=== PATIENT | female | born 1995 | race Two or more races ===

== ENCOUNTER 2024-05-19 15:46 | Inpatient (IN) | payer BC, MEDICAID, SELFPAY ==
[2024-05-19] VITALS (9 sets, daily range): BP systolic 108–135; BP diastolic 64–81; PULSE 67–99; RESP 16–18; TEMP 36.6–36.8; O2SAT 95–98; BMI 30.1
--- NOTE | 2024-05-19 16:00 | EDNOTE_ITS ---
ED General RME/HPI General Stated complaint: BACK PAIN Time Seen by Provider: 05/19/24 15:55 Arrival date/time: 05/19/24 15:46 RME / HPI RME / HPI narrative: 29-year-old female patient with history of back pain in the past, came in for ev aluation regarding sudden onset of back pain, lumbar location, after coughing a lot. Patient denies any shortness of breath denies any fever denies any bladder incontinence. Denies any bowel incontinence denies any saddle anesthesia. Pain is worse with sudden positional change. Patient took Tylenol with codeine with no relief. Came in with ambulance Related Data Previous Rx's ?Medication ?Instructions ?Recorded ibuprofen 800 mg tablet 800 mg PO TID PRN pain #30 tabs 11/01/22 meloxicam 7.5 mg tablet 7.5 mg PO BID #45 tabs 05/17/23 ketorolac 10 mg tablet 10 mg PO TID PRN pain 5 days #20 05/19/24 tabs lidocaine 5 % topical patch 1 patch topical Q24H #15 ea 05/19/24 methocarbamol 750 mg tablet 750 mg PO TID #21 tabs 05/19/24 Allergies Allergy/AdvReac Type Severity Reaction Status Date / Time No Known Allergies Allergy Verified 05/17/23 10:19 Review of Systems Review of Systems Narrative Review of Systems: VITAL SIGNS: Reviewed. GENERAL APPEARANCE: Alert and interactive, follows commands, no acute distress, HEAD AND FACE: Non-traumatic. ENT: PERRL, pink conjunctivitis, eyelid no trauma, Mucous membrane moist. NECK: Supple, nontender, no nuchal rigidity. CHEST: No tenderness, no crepitus, no paradoxical movement, no retractions. LUNGS: Clear, well ventilated, symmetric, no rales, no wheezing, no ronchi, no stridor, good breath sounds bilaterally. HEART: Regular rate, regular rhythm, no murmur, no gallops. ABDOMEN: Soft, positive bowel sounds, nondistended, no guarding, nontender, no rebound, no masses, RECTAL: Deferred. GENITAL: Deferred. NEUROLOGICAL: Gross motor function intact sensory function intact, Appropriate for age. MUSCULOSKELETAL: low back nontender, full range of motion. EXTREMITIES: Nontender, full range of motion. SKIN: Color pink, dry, no rash, no lacerations, no abrasions, no contusions. LYMPHATICS: Deferred. ED Exam Narrative Physical exam: VITAL SIGNS: Reviewed. GENERAL APPEARANCE: Alert and interactive, follows commands, no acute distress, HEAD AND FACE: Non-traumatic. ENT: PERRL, pink conjunctivitis, eyelid no trauma, Mucous membrane moist. NECK: Supple, nontender, no nuchal rigidity. CHEST: No tenderness, no crepitus, no paradoxical movement, no retractions. LUNGS: Clear, well ventilated, symmetric, no rales, no wheezing, no ronchi, no stridor, good breath sounds bilaterally. HEART: Regular rate, regular rhythm, no murmur, no gallops. ABDOMEN: Soft, positive bowel sounds, nondistended, no guarding, nontender, no rebound, no masses, RECTAL: Deferred. GENITAL: Deferred. NEUROLOGICAL: Gross motor function intact sensory function intact, Appropriate for age. MUSCULOSKELETAL: low back tenderness, limited range of motion. EXTREMITIES: Nontender, full range of motion. SKIN: Color pink, dry, no rash, no lacerations, no abrasions, no contusions. LYMPHATICS: Deferred. Course Quality Measures none Orders Category Date Time Status HCG Qualitative,Urine Stat Lab 05/19/24 16:50 Completed UA, C/S IF [Urinalysis, C/S if Indicated] Stat Lab 05/19/24 16:50 Completed Urine Culture Stat Lab 05/19/24 16:50 Received Ketorolac Inj [Toradol Inj] Med 05/19/24 16:11 Discontinued 60 mg IM X1 ONE Lidocaine 5% Patch Med 05/19/24 16:11 Discontinued 1 patch TOP X1 ONE Morphine Inj Med 05/19/24 17:54 Discontinued 4 mg IM X1 ONE methocarbamoL [Robaxin] Med 05/19/24 16:11 Discontinued 500 mg PO X1 ONE Vital Signs Vital signs: Vital Signs Temperature 98.3 F 05/19/24 15:48 Pulse Rate 83 05/19/24 15:48 Respiratory Rate 18 05/19/24 15:48 Blood Pressure 122/76 05/19/24 15:48 Pulse Oximetry (%) 97 05/19/24 15:48 Oxygen Delivery Method Room Air 05/19/24 15:48 [facility] Patient data External records reviewed:: None Clinical information provided by:: patient Social determinants that could affect healthcare access:: none Patient has the following chronic illnesses:: None How is presenting disease/condition affected by chronic disease/condition?: no chronic disease Evaluation data The following diagnostics were reviewed and interpreted by me:: lab results Lab and/or radiology exams considered but not ordered:: None Interpretation Summary: Urinalysis no UTI, Medications Medications considered but not ordered:: None Medication administrations:: Medication Administration History Discontinued Medications Ketorolac Tromethamine (Ketorolac Inj 60 Mg/2 Ml Vial) 60 mg IM X1 ONE Stop: 05/19/24 16:12 Last Admin: 05/19/24 16:48 Dose: 60 mg Documented By: BRIGIDA Lidocaine (Lidocaine 5% 1 Patch) 1 patch TOP X1 ONE Stop: 05/19/24 16:12 Last Admin: 05/19/24 16:55 Dose: 1 patch Documented By: BRIGIDA Methocarbamol (Methocarbamol 500 Mg Tablet) 500 mg PO X1 ONE Stop: 05/19/24 16:12 Last Admin: 05/19/24 17:39 Dose: 500 mg Documented By: BRIGIDA Morphine Sulfate (Morphine Sulf Inj 10 Mg/Ml Vial) 4 mg IM X1 ONE Stop: 05/19/24 17:55 Last Admin: 05/19/24 18:06 Dose: 4 mg Documented By: BRIGIDA Toradol lidocaine patch Robaxin and morphine Consultations Consultation(s) initiated? (list below): No Diagnosis Differential Diagnosis ED Complaint MDM: Acute low back pain, lumbar disc disease, lumbar strain Most likely diagnosis given after review of the tests above:: Acute low back pain Admission Indicated Admission indicated?: not indicated Explain why admission is indicated or not indicated:: Stable Admission Request Was there a request for admission?: No Disposition Plan Disposition Plan: Discharge Discharge Attestation Discharge Attestation: The patient and all family members were given an opportunity to ask questions and understood the discharge instructions. Discharge instructions specifically effects, indications for sooner follow up or return to the emergency department, and the expected course of current diagnosis. Patient condition: Stable Medical Decision Making MDM Narrative MDM Narrative: 29-year-old female patient with history of back pain in the past, came in for evaluation regarding sudden onset of back pain, lumbar location, after coughing a lot. Patient denies any shortness of breath denies any fever denies any bladder incontinence. Denies any bowel incontinence denies any saddle anesthesia. Pain is worse with sudden positional change. Patient took Tylenol with codeine with no relief. Came in with ambulance Urinalysis came back negative patient tested negative for . Patient received Toradol IM, Robaxin, with significant improvement of pain however patient still having pain I added morphine and patient is now ready to go home according to her. I advised the patient to follow-up with PCP and asked for referral to physical therapy if no improvement with physical therapy patient needs outpatient MRI of the lumbar spine. Patient agrees with the plan. No need for imaging or emergency imaging of the lumbar spine at this time patient is showing any cauda equina syndrome. Differential Diagnosis Differential Diagnosis: Acute low back pain, lumbar disc disease, lumbar strain Lab Data Labs: Lab Results 05/19/24 Range/Units 16:50 Ur Collection Type Clean Catch Urine Color Lt-Yellow (Lt Yel-Yel) Urine Clarity Clear (Clear/Hazy) Urine pH 7.0 (5.0-7.0) Ur Specific [place] 1.011 (1.001-1.035) Urine Protein Negative (Neg - Trace) Urine Glucose (UA) Negative (Negative) Urine Ketones Negative (Negative) Urine Blood Negative (Negative) Urine Nitrite Negative (Negative) Urine Bilirubin Negative (Negative) Urine Urobilinogen (Auto) Negative (0.0-1.0) mg/dL Ur Leukocyte Esterase Negative (Negative) Urine RBC 3 (0-3) /hpf Urine WBC 1 (0-5) /hpf Ur Squamous Epith Cells 1 (0-5) /hpf Urine Bacteria 1+ A (None) Ur Culture Indicated? Yes Urine HCG, Qual Negative Discharge Plan Plan Patient Disposition: HOME (Self Care) Disposition Comment: stable Prescriptions/Referrals Prescriptions/Med Rec: New methocarbamol 750 mg tablet 750 mg PO TID Qty: 21 0RF ketorolac 10 mg tablet 10 mg PO TID PRN (Reason: pain) 5 Days Qty: 20 0RF lidocaine 5 % adhesive patch,medicated 1 patch topical Q24H Qty: 15 0RF Rx Instructions: leave on most painful area for up to 12 hrs No Action meloxicam 7.5 mg tablet 7.5 mg PO BID Qty: 45 3RF ibuprofen 800 mg tablet 800 mg PO TID PRN (Reason: pain) Qty: 30 0RF Referrals: Lauren Yo PA-C ([facility]) [Primary Care Provider] - In 1 week Problem List Clinical Impression: Acute low back pain Patient/Caregiver Discharge Instructions Discharge Activity: activity as tolerated Education Materials: ED Back Care Tips Additional Instructions: Thank you for the opportunity for serving you today. You are stable for discharged . You are advised to: Follow-up with your PCP in 1 to 2 days Return to ED for worsening of symptoms Increase oral fluids Take medication as prescribed Print Language: Tamazight Stand Alone Forms: Mariana Award Info., Patient Portal Info Letter
[2024-05-19] MEDS: KETOROLAC INJ 60 MG/2 ML VIAL IM (16:48)
[2024-05-19 16:55] LABS: Collection Type, Urine Clean Catch
[2024-05-19] MEDS: LIDOCAINE 5% 1 PATCH TOP (16:55)
[2024-05-19 17:04] LABS: Bacteria,Urine 1+; Bilirubin,Urine Negative (Negative); Blood,Urine Negative (Negative); Clarity,Urine Clear (Clear/Hazy); Color,Urine Lt-Yellow (Lt Yel-Yel); Glucose, Urine Negative (Negative); Ketones,Urine Negative (Negative); Leukocyte Esterase,Urine Negative (Negative); Nitrite,Urine Negative (Negative); Protein,Urine Negative (Neg - Trace); RBC,Urine 3 /hpf (0-3); Specific Gravity,Urine 1.011 (1.001-1.035); Squamous Epithelial Cell,Urine 1 /hpf (0-5); Urobilinogen,Urine Negative mg/dL (0.0-1.0); WBC,Urine 1 /hpf (0-5)
[2024-05-19 17:05] LABS: Culture Indicated,Urine Yes; HCG Qualitative,Urine Negative
[2024-05-19] MEDS: methocarbamoL 500 MG TABLET PO (17:39)
[2024-05-19] MEDS: MORPHINE SULF INJ 10 MG/ML VIAL 4 MG IM (18:06)
[2024-05-19] MEDS: HYDROmorphone INJ 2 MG/ML VIAL 1 MG IM (18:56)
--- NOTE | 2024-05-19 19:21 | PC.NURSE ---
1700 PATIENT STATES THAT SHE HURT HER RT KNEE A FEW MONTHS AGO AND HAS BEEN HAVING INTERMITTENT BACK PAIN SINCE THEN. STATES THE PAIN HAS NEVER BEEN BAD TODAY NOR RADIATING DOWN HER LEGS. PAIN IS TOLERABLE WHEN SHE IS PRONE BUT INCREASES WHE SHE TRIES TO SIT UP. 1820 PATIENT DISCHARGED AND TRIED TO GET UP. UNABLE DUE TO SEVERE PAIN. ASKED REST AND GIVE PAIN MEDICATION MORE TIME TO WORK, THEN TRY AGAIN. REASSURED NO [place]TT TO DISCHARGE. 1840 PATIENT TRIED AGAIN AND STILL NOT ABLE TO GET UP. PROVIDER INFORMED. HE WENT TO BEDSIDE TO EVALUATE AND ORDERED MORE PAIN MEDICATION
--- NOTE | 2024-05-19 19:25 | XR_ITS ---
Examination: CT abdomen with intravenous contrast CT pelvis with intravenous contrast 2-D coronal reconstructions 2-D sagittal reconstructions Date and time of exam:May 12, 2024 1950 hrs. Indications: Abdominal pain lower back pain radiating down both legs, beginning 2 days ago. CTDI: vol (mGy) 8.980 DLP: (mGycm) 505 10 Technique: Multiple axial sections of the abdomen and pelvis have been obtained. 64 slice high-resolution scanner used. 3 mm axial sections have been obtained, post intravenous injection 60 cc Isovue-370 2-D sagittal, coronal reconstructions obtained. Low dose protocols were performed. One or more of the following dose reduction techniques were used; automated exposure control, adjustment of the mA and/or KV according to patient size, use of iterative reconstruction technique. Findings: Significant opacity in the right middle lobe and right base No focal liver or splenic lesions No gallstones No pancreatic or adrenal mass No renal or ureteral calculi, no hydronephrosis Aorta normal size Normal appendix Anteverted uterus No bladder mass L4-L5 extruded 6 mm central disc impinging upon the thecal sac Impression: Recommend PA lateral chest follow-up to confirm right base right middle lobe pneumonia No renal or ureteral calculi, no hydronephrosis Normal appendix L4-L5 large extruded central disc, consider MRI lumbar spine without contrast follow-up
--- NOTE | 2024-05-19 19:25 | XR_ITS ---
Examination: CT lumbar spine, with intravenous contrast. 2-D sagittal reconstructions. 2-D coronal reconstructions. 3-D reconstructions. Date and time of exam:May 19, 2024 1958 hrs. Indications: Low back pain radiating down both legs beginning 2 days ago CTDI: vol (mGy):22.4 DLP: (mGycm):594 Technique: Multiple 1.25 mm axial sections of the lumbar spine with intravenous contrast, 60 cc Isovue-370 have been obtained. 2-D sagittal and coronal reconstructions have been obtained. 3-D reconstructions have been obtained. Low dose protocols were performed. One or more of the following dose reduction techniques were used; automated exposure control, adjustment of the mA and/or KV according to patient size, use of iterative reconstruction technique. Findings: Adequate alignment lumbar vertebral bodies No lumbar fracture Moderate disease L5-S1 L4-L5 large, 9 mm extruded central disc severely impinging upon the thecal sac More cephalad levels unremarkable Impression: L5-S1 large, 9 mm, extruded central disc producing severe spinal stenosis Recommend MRI lumbar spine without contrast follow-up
[2024-05-19 20:01] LABS: Basophils % (Auto) 0 % (0-2.5); Eosinophils # (Auto) 0.3 Thou/mm3 (0.0-0.5); Eosinophils % (Auto) 4 % (0-10); Hematocrit 33.6 % (36.0-46.0); Hemoglobin 11.9 g/dL (12.0-16.0); Immature Granulocytes % (Auto) 0 % (0-0); Immature Granulocytes Auto 0.02 Thou/mm3 (0.00-0.00); Lymphocytes # (Auto) 2.6 Thou/mm3 (1.0-4.8); Lymphocytes % (Auto) 31 % (10-50); Mean Corpuscular HGB Conc 35.4 g/dl (31.0-37.0); Mean Corpuscular Hemoglobin 29.4 pg (25.0-35.0); Mean Corpuscular Volume 83 fL (80-100); Monocytes # (Auto) 0.7 Thou/mm3 (0.0-0.8); Monocytes % (Auto) 8 % (0-12); Neutrophils # (Auto) 4.7 Thou/mm3 (1.8-7.7); Neutrophils % (Auto) 57 % (37-80); Nucleated Red Blood Cell % 0 /100 WBC (0); Platelet Count 318 Thou/mm3 (140-440); RDW Standard Deviation 38.1 fL (36.4-46.3); Red Blood Count 4.05 Miln/mm3 (4.00-5.20); White Blood Count 8.2 Thou/mm3 (3.6-11.0)
[2024-05-19] MEDS: DIAZEPAM 5 MG TABLET 10 MG PO (20:09)
[2024-05-19 20:20] LABS: Alanine Aminotransferase 51 U/L (10-49); Albumin, Serum 4.7 gm/dL (3.5-5.0); Albumin/Globulin Ratio 1.5 (1.2-2.2); Alkaline Phosphatase 86 U/L (46-116); Anion Gap 10 (7-16); Aspartate Amino Transferase 29 U/L (0-34); BUN/Creatinine Ratio 15 Ratio (12-20); Bilirubin,Total 0.3 mg/dL (0.3-1.2); Blood Urea Nitrogen 9 mg/dL (9-23); Calcium 9.4 mg/dL (8.3-10.6); Calcium (Corrected) 9.4 mg/dL (8.5-10.1); Carbon Dioxide 23.2 mMol/L (20.0-31.0); Chloride 107 mMol/L (98-107); Creatinine (Component) 0.6 mg/dL (0.6-1.3); Estimated Creatinine Clearance 134.8 mL/min (>60); Globulin 3.2 gm/dL (2.3-3.5); Glucose 96 mg/dL (74-106); Lipase 37 U/L (12-53); Osmolality,Calculated 278 (275-295); Potassium 3.6 mMol/L (3.4-5.1); Sodium 140 mMol/L (136-145); Total Protein 7.9 gm/dL (5.7-8.2); eGFR > 60 See Note
--- NOTE | 2024-05-19 22:30 | ESHP_ITS ---
Documentation for date of: 05/19/24 [facility] History of Present Illness Chief complaint: Severe Backache History of present illness: A 29-year-old female with no significant past medical history presented to the hospital with chief complaints of severe intractable low back pain since 1 day. Patient was apparently normal 6 months ago during which she fell on her back and had back pain for few days following which it subsided. 1 week ago, patient was diagnosed with flu and was taking Tamiflu. Patient is having severe cough since then. On the day of admission, patient had severe cough episode while sitting in the car following which she noted sudden onset lower back pain due to which she was not even able to mobilize and her friend by her side took her to the home helped her to walk into the home as patient was not able to walk due to severe pain and also not able to bear weight on her legs due to severe tingling and numbness radiating from the low back to the foot. After going to the home patient laid down on the floor for few hours and as patient was still not able to get up from the bed, patient was brought to the hospital. Endorsed that she is able to feel clothes on her body. Denies bowel, bladder incontinence, saddle anesthesia. ED Course: -Initial vitals were stable -Labs significant for Hb 11.9, ALT 51, urine analysis showed 1+ bacteria -Lumbar spine of CT showed 9 mm central disc bulge causing spinal stenosis at L5/S1 -In the ED, patient was given ketorolac, hydromorphone -Patient was admitted for intractable back ache secondary to spinal stenosis Past medical history: Not significant Past surgical history: Breast implants Social history: Denies smoking, alcohol, other illicit drug abuse. Review of Systems Review of Systems Systems Reviewed: All systems reviewed, normal except as documented Exam Vital Signs Temp Pulse Resp BP Pulse Ox O2 Del Method 97.9 F 75 18 108/67 95 Room Air 05/19/24 20:14 05/19/24 21:00 05/19/24 20:14 05/19/24 21:00 05/19/24 21:00 05/19/24 20:14 Narrative Exam General: Awake. HEENT: Normocephalic, atraumatic, mucous membranes moist. Heart: Regular rate and rhythm, no murmurs. Lungs: Clear to auscultation with no wheezing or crackles. Abdomen: Soft, nondistended, nontender, positive bowel sounds. ?No guarding or rebound tenderness. Neurologic: Alert and oriented x3, patient able to move all 4 extremities. Power is 4+/5 in lower extremities and 5/5 in upper extremities. Absent ankle reflexes Extremities: No edema. Skin: No rash or ecchymoses. Results: Labs 05/19/24 19:43 05/19/24 19:43 Labs: Short CBC 05/19/24 Range/Units 19:43 WBC 8.2 (3.6-11.0) Thou/mm3 Hgb 11.9 L (12.0-16.0) g/dL Hct 33.6 L (36.0-46.0) % Plt Count 318 (140-440) Thou/mm3 BMP 05/19/24 19:43 Sodium 140 Potassium 3.6 Chloride 107 Carbon Dioxide 23.2 BUN 9 Creatinine 0.6 Glucose 96 Calcium 9.4 Liver Function 05/19/24 Range/Units 19:43 Total Bilirubin 0.3 (0.3-1.2) mg/dL AST 29 (0-34) U/L ALT 51 H (10-49) U/L Alkaline Phosphatase 86 (46-116) U/L Albumin 4.7 (3.5-5.0) gm/dL Urine 05/19/24 Range/Units 16:50 Urine Color Lt-Yellow (Lt Yel-Yel) Urine Clarity Clear (Clear/Hazy) Urine pH 7.0 (5.0-7.0) Ur Specific [place] 1.011 (1.001-1.035) Urine Protein Negative (Neg - Trace) Urine Glucose (UA) Negative (Negative) Quality Measures Quality Measures none Medications Home Medications and Allergies Home Medications ?Medication ?Instructions ?Recorded ?Confirmed ?Type hydrochlorothiazide 12.5 mg tablet 10 mg PO QDAY 05/20/24 05/20/24 History Allergies Allergy/AdvReac Type Severity Reaction Status Date / Time No Known Allergies Allergy Verified 05/17/23 10:19 Visit Medications Acetaminophen (Acetaminophen 325 Mg Tablet) 650 mg PO Q6H PRN PRN Reason: Fever >101.5 Stop: 06/18/24 22:12 Magnesium Hydroxide (Milk Of Magnesia Susp 30 Ml Udc) 30 ml PO QDAY PRN; Protocol PRN Reason: CONSTIPATION Stop: 06/18/24 22:12 Ondansetron HCl (Ondansetron Inj 2 Mg/Ml Inj 2 Ml) 4 mg IV Q6H PRN; Protocol PRN Reason: NAUSEA OR VOMITING Stop: 06/18/24 22:12 Discontinued Medications Diazepam (Diazepam 5 Mg Tablet) 10 mg PO X1 ONE Stop: 05/19/24 19:29 Last Admin: 05/19/24 20:09 Dose: 10 mg Hydromorphone HCl (Hydromorphone Inj 2 Mg/Ml Vial) 1 mg IM X1 ONE Stop: 05/19/24 18:45 Last Admin: 05/19/24 18:56 Dose: 1 mg Ketorolac Tromethamine (Ketorolac Inj 60 Mg/2 Ml Vial) 60 mg IM X1 ONE Stop: 05/19/24 16:12 Last Admin: 05/19/24 16:48 Dose: 60 mg Lidocaine (Lidocaine 5% 1 Patch) 1 patch TOP X1 ONE Stop: 05/19/24 16:12 Last Admin: 05/19/24 16:55 Dose: 1 patch Methocarbamol (Methocarbamol 500 Mg Tablet) 500 mg PO X1 ONE Stop: 05/19/24 16:12 Last Admin: 05/19/24 17:39 Dose: 500 mg Morphine Sulfate (Morphine Sulf Inj 10 Mg/Ml Vial) 4 mg IM X1 ONE Stop: 05/19/24 17:55 Last Admin: 05/19/24 18:06 Dose: 4 mg Assessment & Plan Plan A 29-year-old female with no significant past medical history presented to the hospital with chief complaints of sudden onset intractable back pain and admitted for pain control in the view of severe spinal stenosis at L5/S1 # Intractable back pain # Secondary to severe lumbar stenosis at L5/S1 due to disc bulge -Patient had sudden onset of severe back pain after a bout of cough episode since 1 day -Associated with radiation of pain down to the foot along the lower extremities -Denies sensory loss, bladder or bowel incontinence -Denies trauma to the back preceding to this episode -Vitals are stable at the time of admission -Labs showed mild anemia -Lumbar spine CT showed severe spinal stenosis at L5/S1 due to disc bulge of 9 mm -Patient received ketorolac, lignocaine patch, hydromorphone in the ED Plan -A dose of dexamethasone 10 Mg IV is given -[place] 5 every fourth hourly as needed -Morphine 2 Mg IV push for breakthrough pain -MRI of LS spine is ordered -Monitor for neurological deficits -If pain is not controlled with the oral and IV medications, intrathecal analgesia is recommended -Recommended to follow-up with neurosurgeon on outpatient basis # Normocytic normochromic anemia -Hemoglobin at the time of admission is 11.9 -Can follow-up in outpatient basis for further management Hospital Maintenance: Dispo: medsurg for observation DVT ppx: SCD GI ppx: not needed Diet: Regular IV lines: Peripheral Code status: Full Patient plan of care was discussed with the attending physician, Dr. Krunal Huddleston, PGY1 Attending Provider Attestation/Addendum I have examined the patient, reviewed labs and imaging findings, discussed the case with the resident(s), and reviewed entered orders. I agree with the plan of care as outlined in this note, with these additional summaries/recommendations: Patient is a 29-year-old female with a medical history of primary hypertension, asthma, and recent flu who presented to [facility] emergency department on 05/19/2024 with chief complaint of severe back pain. Patient reports she had a severe coughing episode and experienced severe back pain shortly after. In the emergency department patient was found to have intractable pain and hospitalist team consulted for continuation of care. Patient's PCP Dr. Larson was also consulted via emergency room and recommends admission for intractable pain. #Acute intractable back pain #Prolapsed Disc in Lumbar Region #Spinal Stenosis Presented with acute severe back pain after coughing episode. Denies trauma. CT lumbar spine: L5-S1 large, 9 mm, extruded central disc producing severe spinal stenosis Plan: No evidence of neurologic deficits or cauda equina syndrome requiring surgical decompression at this time. Sensation is intact in bilateral lower extremities, able to move bl extremities, and no evidence of bladder or rectal dysfunction. Patient reports she is unable to ambulate secondary to pain. Start pain management, admit to observation, and consult physical therapy. If no improvement patient may require epidural steroid injection. Discussed with patient that nonsurgical treatment precedes surgical treatment unless neurologic deficits are present and that she will likely need to follow-up outpatient with spine surgeon. #History of influenza Plan: Patient reports she was recently diagnosed with the flu and was prescribed Tamiflu. Overall symptoms significantly improved and we will monitor for now. # Chronic constipation Plan: As needed laxative Dr. Hector
[2024-05-19] MEDS: DEXAMETHASONE SOD PHOS INJ 4 MG/ML VIAL 10 MG IVP (23:30)
[2024-05-19] MEDS: ONDANSETRON INJ 2 MG/ML INJ 2 ML 4 MG IV (23:36)
[2024-05-20 04:00] VITALS: BP 118/72; PULSE 77; RESP 18; TEMP 36.1; O2SAT 96
[2024-05-20] MEDS: MORPHINE SULF INJ 10 MG/ML VIAL 2 MG IVP ×2 (05:30→22:10)
[2024-05-20] MEDS: ONDANSETRON INJ 2 MG/ML INJ 2 ML 4 MG IV (05:32)
[2024-05-20 05:34] LABS: Basophils % (Auto) 0 % (0-2.5); Eosinophils % (Auto) 0 % (0-10); Hematocrit 34.8 % (36.0-46.0); Hemoglobin 12.2 g/dL (12.0-16.0); Immature Granulocytes % (Auto) 0 % (0-0); Immature Granulocytes Auto 0.02 Thou/mm3 (0.00-0.00); Lymphocytes # (Auto) 1.1 Thou/mm3 (1.0-4.8); Lymphocytes % (Auto) 15 % (10-50); Mean Corpuscular HGB Conc 35.1 g/dl (31.0-37.0); Mean Corpuscular Hemoglobin 29.5 pg (25.0-35.0); Mean Corpuscular Volume 84 fL (80-100); Monocytes # (Auto) 0.2 Thou/mm3 (0.0-0.8); Monocytes % (Auto) 2 % (0-12); Neutrophils # (Auto) 5.9 Thou/mm3 (1.8-7.7); Neutrophils % (Auto) 83 % (37-80); Nucleated Red Blood Cell % 0 /100 WBC (0); Platelet Count 320 Thou/mm3 (140-440); RDW Standard Deviation 37.7 fL (36.4-46.3); Red Blood Count 4.14 Miln/mm3 (4.00-5.20); White Blood Count 7.2 Thou/mm3 (3.6-11.0)
[2024-05-20 06:11] LABS: Anion Gap 10 (7-16); BUN/Creatinine Ratio 25 Ratio (12-20); Blood Urea Nitrogen 15 mg/dL (9-23); Calcium 9.8 mg/dL (8.3-10.6); Carbon Dioxide 25.2 mMol/L (20.0-31.0); Chloride 104 mMol/L (98-107); Creatinine (Component) 0.6 mg/dL (0.6-1.3); Estimated Creatinine Clearance 138.4 mL/min (>60); Glucose 156 mg/dL (74-106); Osmolality,Calculated 281 (275-295); Potassium 3.8 mMol/L (3.4-5.1); Sodium 139 mMol/L (136-145); Thyroid Stimulating Hormone 0.42 uIU/mL (0.55-4.78); eGFR > 60 See Note
[2024-05-20 08:00] VITALS: BP 112/68; PULSE 88; RESP 16; TEMP 36.8; O2SAT 95
[2024-05-20] MEDS: HYDROcodone/APAP 5/325 TABLET 1 TAB PO ×3 (08:50→21:07)
--- NOTE | 2024-05-20 08:56 | PC.NURSE ---
pt states she has not had a BM in 1 week. RN offered milk of mag. pt declined. pt cannot get out of bed because her back pain is so severe . Pt does not want to have to use a bedpan. Will continue to monitor
--- NOTE | 2024-05-20 09:12 | PD.IMCONS ---
HPI Data of Consult Requesting Physician: Jordy Hector MD While Primary Care Provider: [facility] NaplesJennifer, NESTOR Consult Narrative Reason for consult: Change of bowel habit is warranted constipation stool impaction cc:: cc: Jordy Hector MD Past Medical History Surgical History OTHER SURGICAL HX: As in the history of present illness Meds Home Medications and Allergies Home Medications ?Medication ?Instructions ?Recorded ?Confirmed ?Type hydrochlorothiazide 12.5 mg tablet 10 mg PO QDAY 05/20/24 05/20/24 History Allergies Allergy/AdvReac Type Severity Reaction Status Date / Time No Known Allergies Allergy Verified 05/17/23 10:19 Exam Vital Signs Temp Pulse Resp BP Pulse Ox O2 Del Method 98.2 F 88 16 112/68 95 Room Air 05/20/24 08:00 05/20/24 08:00 05/20/24 08:00 05/20/24 08:00 05/20/24 08:00 05/20/24 08:00 Constitutional Comments: alert oriented In moderate pain Routine Respiratory Exam Comments: Normal to auscultation Routine Abdominal Exam Comments: Soft tender active bowel sounds Routine Neurological Exam Comments: Severe lumbosacral pain radiating bilaterally Results Labs 05/20/24 04:26 05/20/24 04:26 Labs: Short CBC 05/19/24 05/20/24 Range/Units 19:43 04:26 WBC 8.2 7.2 (3.6-11.0) Thou/mm3 Hgb 11.9 L 12.2 (12.0-16.0) g/dL Hct 33.6 L 34.8 L (36.0-46.0) % Plt Count 318 320 (140-440) Thou/mm3 BMP 05/19/24 05/20/24 19:43 04:26 Sodium 140 139 Potassium 3.6 3.8 Chloride 107 104 Carbon Dioxide 23.2 25.2 BUN 9 15 Creatinine 0.6 0.6 Glucose 96 156 H D Calcium 9.4 9.8 Liver Function 05/19/24 Range/Units 19:43 Total Bilirubin 0.3 (0.3-1.2) mg/dL AST 29 (0-34) U/L ALT 51 H (10-49) U/L Alkaline Phosphatase 86 (46-116) U/L Albumin 4.7 (3.5-5.0) gm/dL Urine 05/19/24 Range/Units 16:50 Urine Color Lt-Yellow (Lt Yel-Yel) Urine Clarity Clear (Clear/Hazy) Urine pH 7.0 (5.0-7.0) Ur Specific [place] 1.011 (1.001-1.035) Urine Protein Negative (Neg - Trace) Urine Glucose (UA) Negative (Negative) Assessment and Plan Additional Assessment & Plan Additional Plan: # Obstipation constipation # Pain abdomen secondary to the 1 MiraLAX twice a day Lactulose 20 mg p.o. daily # Lumbosacral radiculopathy with herniated nucleus pulposus at L4-5 level MRI of the lumbosacral spine without contrast Interventional radiology to do thecal block at the L4-5 level tomorrow after MRI of the lumbosacral spine Pain control Possible transfer to a tertiary center after the MRI if the epidural block does not work for the surgical intervention as the disc is shattered at the L4-5 level
[2024-05-20 09:52] LABS: Free T4 (Free Thyroxine) 1.13 ng/dL (0.89-1.76)
[2024-05-20 12:00] VITALS: BP 114/68; PULSE 86; RESP 17; TEMP 36.8; O2SAT 97
[2024-05-20] MEDS: LACTULOSE SYRUP 20 GM/30 ML UDC PO (13:27)
[2024-05-20] MEDS: POLYETHYLENE GLYCOL 17 GM PACKET PO ×2 (13:27→21:09)
[2024-05-20 16:00] VITALS: BP 115/70; PULSE 90; RESP 17; TEMP 36.4; O2SAT 97
--- NOTE | 2024-05-20 16:04 | ESPR_ITS ---
<Statement entered by Efrain Stokes MD - 05/20/24 16:08> Patient was seen and examined at the bedside this morning. Patient had a fall 6 months ago and had excruciating back pain a day ago due to productive cough as she was recently getting treatment for influenza a week ago. Patient reported that her pain is still there and improved since yesterday. Lumbar spine showed spinal stenosis with 9 mm bulge. PT recommended home health PT upon discharge. We are currently waiting on MRI spine. Will continue with dexamethasone for now and pain management. Hemoglobin and white count was stable. All labs and orders were reviewed. I saw and examined the patient, and I agree with current management stated by Dr Myke MD,PGY1. Plan of care was discussed with the attending physician and resident physician. Disclaimer: Despite multiple revisions, due to the dictation software being used, the document bellow may not be free of grammatical errors including phonetic/typographic errors. However, this does not deter from our commitment to providing health care in the patient's best interest in mind. Dr. John MD, PGY 2 Documentation for date of: 05/20/24 Subjective Subjective Interval history: Admitted overnight. No acute events noted. Patient stated lumbar tenderness first stared secondary to a mechanical fall about months ago. Patient stated [place] the [place] and stepped on a rock that caused her to fall supine hitting her lumbar spine. Patient denied urinary retention. Denied saddle anesthesia. Increased constipation since fall. Increased lumbar pain worsened by cough secondary to recent URI and increased weakness left lower extremity. Patient was scheduled for MRI as outpatinet, but had improved symptoms and did not follow through. Pending MRI of lumbar spine. Exam Vital Signs Temp Pulse Resp BP Pulse Ox O2 Del Method 98.3 F 86 17 114/68 97 Room Air 05/20/24 12:00 05/20/24 12:00 05/20/24 12:00 05/20/24 12:05/20/24 12:05/20/24 12:00 Narrative Exam General Appearance: Alert & Oriented X3, well-nourished female who is lying in bed in mild discomfort. Lower lumbar tenderness. HEENT: Skull symmetrical and atraumatic. Conjunctivae pin and moist. Pupils equal, round, reactive to light and accommodation (PERRL). External ear without lesion or discharge. Straight, nares patient, mucosa pink, no discharge. No thyroid nodule appreciated. No cervical lymphadenopathy. Cardio: Normal Rate and Rhythm with S1 and S2 heart sounds. No murmurs or extra heart sounds auscultated. No bruits on carotid auscultation. No peripheral edema or cyanosis. Lungs: Symmetric with good expansion. Chest and back non-tender. Breath sounds vesicular without crackles, wheezing or rhonchi Abdomen: Non-tender, Non-distended, Normal Reactive Bowel Sounds Neuro: Alert, cooperative, oriented to person, place, and time. Speech clear. CN grossly intact. Upper motor strength 5/5. Right lower motor 5/5 and left lower motor strength 3/5 with decreased patellar reflexes. Sensation intact and equal bilaterally. Objective Labs 05/20/24 04:26 05/20/24 04:26 Labs: Laboratory Results - last 24 hr 05/19/24 05/19/24 05/20/24 16:50 19:43 04:26 WBC 8.2 7.2 RBC 4.05 4.14 Hgb 11.9 L 12.2 Hct 33.6 L 34.8 L MCV 83 84 MCH 29.4 29.5 MCHC 35.4 35.1 RDW Std Deviation 38.1 37.7 Plt Count 318 320 Neut % (Auto) 57 83 H Lymph % (Auto) 31 15 [place] % (Auto) 8 2 Eos % (Auto) 4 0 Baso % (Auto) 0 0 Neut # (Auto) 4.7 5.9 Lymph # (Auto) 2.6 1.1 [place] # (Auto) 0.7 0.2 Eos # (Auto) 0.3 0.0 Baso # (Auto) 0.0 0.0 Immature Gran # (Auto) 0.02 H 0.02 H Absolute Nucleated RBC 0.00 0.00 Immature Gran % 0 0 Nucleated RBC % 0 0 Sodium 140 139 Potassium 3.6 3.8 Chloride 107 104 Carbon Dioxide 23.2 25.2 Anion Gap 10 10 BUN 9 15 Creatinine 0.6 0.6 Estim Creat Clear Calc 134.8 138.4 eGFR > 60 > 60 BUN/Creatinine Ratio 15 25 H Glucose 96 156 H D Calculated Osmolality 278 281 Calcium 9.4 9.8 Corrected Calcium 9.4 Total Bilirubin 0.3 AST 29 ALT 51 H Alkaline Phosphatase 86 Total Protein 7.9 Albumin 4.7 Globulin 3.2 Albumin/Globulin Ratio 1.5 Lipase 37 TSH 0.42 L Free T4 1.13 Ur Collection Type Clean Catch Urine Color Lt-Yellow Urine Clarity Clear Urine pH 7.0 Ur Specific [place] 1.011 Urine Protein Negative Urine Glucose (UA) Negative Urine Ketones Negative Urine Blood Negative Urine Nitrite Negative Urine Bilirubin Negative Urine Urobilinogen (Auto) Negative Ur Leukocyte Esterase Negative Urine RBC 3 Urine WBC 1 Ur Squamous Epith Cells 1 Urine Bacteria 1+ A Ur Culture Indicated? Yes Urine HCG, Qual Negative Quality Measures Quality Measures none Assessment & Plan Assessment Current Active Medications: Generic Name Dose Route Start Last Admin Trade Name Freq PRN Reason Stop Dose Admin Acetaminophen 650 mg 05/20/24 10:53 Acetaminophen 325 Mg Tablet PO 06/18/24 22:12 Q6H PRN Fever >100.3 Hydrocodone Bitart/Acetaminophen 1 tab 05/20/24 04:46 05/20/24 13:28 Hydrocodone/Apap 5/325 Tablet PO 05/25/24 04:45 1 tab Q4HR PRN Administration Pain 6-10 Lactulose 20 gm 05/20/24 13:15 05/20/24 13:27 Lactulose Syrup 20 Gm/30 Ml Udc PO 06/19/24 13:14 20 gm DAILY BRANDI Administration Protocol Magnesium Hydroxide 30 ml 05/19/24 22:13 Milk Of Magnesia Susp 30 Ml Udc PO 06/18/24 22:12 QDAY PRN CONSTIPATION Protocol Morphine Sulfate 2 mg 05/20/24 10:53 Morphine Sulf Inj 10 Mg/Ml Vial IVP 05/25/24 04:46 Q6HR PRN BREAKTHROUGH PAIN (SEVERE) Ondansetron HCl 4 mg 05/19/24 22:13 05/20/24 05:32 Ondansetron Inj 2 Mg/Ml Inj 2 Ml IV 06/18/24 22:12 4 mg Q6H PRN Administration NAUSEA OR VOMITING Protocol Polyethylene Glycol 17 gm 05/20/24 13:15 05/20/24 13:27 Polyethylene Glycol 17 Gm Packet PO 06/19/24 13:14 17 gm BID BRANDI Administration Plan A 29-year-old female with no significant past medical history presented to the hospital with chief complaints of sudden onset intractable back pain and admitted for pain control in the view of severe spinal stenosis at L5/S1 # Intractable back pain secondary to mechanical fall # Secondary to severe lumbar stenosis at L5/S1 due to disc bulge #Constipation Likely secondary to lumbar trauma experienced 6 months ago secondary to mechanical fall causing injury to lumbar spine. Lumbar spine recently exacerbated by URI and cough. Patient lower extremity radiopathy, with decreased patellar reflexes, and decreased motor strength (3/5) as compared to right lower extremtiy. CT lumbar showed protruding disc at L2-S1. TSH decreased but T4 within limits. Pending MRI. Will likely require outpatient follow up with spinal neurology surgeon. Constipation recently worsened since fall. Follow up with bowel movements, may need to add Senna. Diagnostics: -Lumbar spine CT showed severe spinal stenosis at L5/S1 due to disc bulge of 9 mm Plan -MRI of LS spine is ordered, AM 05/21 -A dose of dexamethasone 10 Mg IV is given x1 -Apison 5 every fourth hourly as needed -Morphine 2 Mg IV push for breakthrough pain -Monitor for neurological deficits/ -If pain is not controlled with the oral and IV medications, intrathecal analgesia is recommended -Recommended to follow-up with neurosurgeon on outpatient basis # Normocytic normochromic anemia -Hemoglobin at the time of admission is 11.9 -Can follow-up in outpatient basis for further management Plan: No acute intervention Hospital Maintenance: Dispo: medsurg for observation, pending MRI lumbar DVT ppx: SCD GI ppx: not needed Diet: Regular IV lines: Peripheral Code status: Full - The patient's plan was discussed with attending Dr. Prescott and senior residents Dr. John Stringer MD PGY1 Internal Medicine // Attending Provider Attestation/Addendum I attest that I was physically present for the evaluation, physical examination, lab and imaging review of the patient with the residents. I discussed the case with the residents and agree with the findings and plans of care as documented above. Patient is admitted overnight for management of intractable back pain secondary to disc bulge. At bedside today, he states that her pain has improved compared to yesterday but she continues to have severe pain whenever she moves. Awaiting MRI results. We will try to wean down on IV analgesics. Edson Prescott MD
[2024-05-20 20:00] VITALS: BP 114/76; PULSE 86; RESP 18; TEMP 36.7; O2SAT 97
[2024-05-20] MEDS: PROMETHAZINE INJ 12.5 MG in SODIUM CHLORIDE 0.9% 50 ML 2.5 MG IV (21:07)
[2024-05-21] VITALS: BP 105/60; PULSE 68; RESP 18; TEMP 36.2; O2SAT 98
--- NOTE | 2024-05-21 | XR_ITS ---
Examination: MRI lumbar spine without contrast Date and time of exam: May 21, 2024 at 1919 hrs. Indications: Low back pain months, CT lumbar spine May 19, 2024 large 9 mm extruded disc L4-L5 level Technique: Multiple MRI axial and sagittal sections lumbar spine. Sagittal T2-weighted images, TR 3500, TE 118 T1 weighted transverse sections, TR 688 T8.5, T2-weighted sagittal sections T1 weighted sagittal sections TR 621, TE 30 T2 axial sections, TR 4, 190, TE 84. Findings: Adequate alignment lumbar vertebral bodies No lumbar fracture Moderate disc space L4-L5 No spondylolisthesis L4-L5 large extruded central right paracentral disc bulge impinging upon the thecal sac, displacing the right L5 nerve root, this disc bulge measures 8 mm Remaining levels unremarkable Impression: L4-L5 large extruded central right paracentral disc bulge severely indenting the thecal sac and displacing the right L5 nerve root
[2024-05-21 04:00] VITALS: BP 94/64; PULSE 74; RESP 18; TEMP 36.4; O2SAT 96
[2024-05-21 05:54] LABS: Basophils % (Auto) 0 % (0-2.5); Eosinophils # (Auto) 0.1 Thou/mm3 (0.0-0.5); Eosinophils % (Auto) 2 % (0-10); Hematocrit 30.5 % (36.0-46.0); Hemoglobin 10.4 g/dL (12.0-16.0); Immature Granulocytes % (Auto) 1 % (0-0); Immature Granulocytes Auto 0.04 Thou/mm3 (0.00-0.00); Lymphocytes # (Auto) 2.6 Thou/mm3 (1.0-4.8); Lymphocytes % (Auto) 35 % (10-50); Mean Corpuscular HGB Conc 34.1 g/dl (31.0-37.0); Mean Corpuscular Hemoglobin 29.2 pg (25.0-35.0); Mean Corpuscular Volume 86 fL (80-100); Monocytes # (Auto) 0.5 Thou/mm3 (0.0-0.8); Monocytes % (Auto) 7 % (0-12); Neutrophils # (Auto) 4.1 Thou/mm3 (1.8-7.7); Neutrophils % (Auto) 56 % (37-80); Nucleated Red Blood Cell % 0 /100 WBC (0); Platelet Count 265 Thou/mm3 (140-440); RDW Standard Deviation 39.3 fL (36.4-46.3); Red Blood Count 3.56 Miln/mm3 (4.00-5.20); White Blood Count 7.3 Thou/mm3 (3.6-11.0)
[2024-05-21 06:32] LABS: Alanine Aminotransferase 33 U/L (10-49); Albumin, Serum 4.1 gm/dL (3.5-5.0); Albumin/Globulin Ratio 1.5 (1.2-2.2); Alkaline Phosphatase 69 U/L (46-116); Anion Gap 6 (7-16); Aspartate Amino Transferase 19 U/L (0-34); BUN/Creatinine Ratio 30 Ratio (12-20); Bilirubin,Total 0.3 mg/dL (0.3-1.2); Blood Urea Nitrogen 18 mg/dL (9-23); Calcium 9.3 mg/dL (8.3-10.6); Calcium (Corrected) 9.3 mg/dL (8.5-10.1); Carbon Dioxide 27.6 mMol/L (20.0-31.0); Chloride 107 mMol/L (98-107); Creatinine (Component) 0.6 mg/dL (0.6-1.3); Estimated Creatinine Clearance 138.4 mL/min (>60); Globulin 2.8 gm/dL (2.3-3.5); Glucose 93 mg/dL (74-106); Magnesium 2.3 mg/dL (1.6-2.6); Osmolality,Calculated 283 (275-295); Phosphorous 2.7 mg/dL (2.4-5.1); Potassium 3.8 mMol/L (3.4-5.1); Sodium 141 mMol/L (136-145); Total Protein 6.9 gm/dL (5.7-8.2); eGFR > 60 See Note
[2024-05-21 08:00] VITALS: BP 96/58; PULSE 76; RESP 16; TEMP 36.3; O2SAT 99
[2024-05-21] MEDS: LACTULOSE SYRUP 20 GM/30 ML UDC PO (08:56)
[2024-05-21] MEDS: POTASSIUM CHLORIDE 20 mEq TABCR PO (08:56)
[2024-05-21] MEDS: POLYETHYLENE GLYCOL 17 GM PACKET PO ×2 (08:56→20:35)
[2024-05-21] MEDS: MORPHINE SULF INJ 10 MG/ML VIAL 2 MG IVP ×2 (10:12→20:31)
--- NOTE | 2024-05-21 10:46 | PC.SS ---
SS follow up note; MRI pending.
[2024-05-21 10:56] VITALS: BMI 11.0
--- NOTE | 2024-05-21 10:58 | ESPR_ITS ---
<Statement entered by Efrain Stokes MD - 05/21/24 13:40> Patient was seen and examined at the bedside this morning. Patient reported that she still have some pain in was having worsening pain while PT evaluated her this morning. She continues to have some numbness in her right lower extremity however is feeling her sensory sensations on both lower extremities. GI specialist recommended to do intrathecal epidural blockade however IR recommended that they can only perform facet block and will follow-up on MRI lumbar spine results. Will continue with pain management as needed and she was recommended to have outpatient PT referral. No brace was recommended by PT. Cough syrup Tessalon was added for patient's dry cough. Patient's blood pressure remains soft and she is requiring morphine IV for pain therefore we will closely monitor blood pressure and if she would need bolus of fluid we will administer that. She was started on lactulose 20 mg and MiraLAX twice daily for constipation. Hemoglobin stable at 10.4. all labs and orders were reviewed. I saw and examined the patient, and I agree with current management stated by Dr Myke MD,PGY1. Plan of care was discussed with the attending physician and resident physician. Disclaimer: Despite multiple revisions, due to the dictation software being used, the document bellow may not be free of grammatical errors including phonetic/typographic errors. However, this does not deter from our commitment to providing health care in the patient's best interest in mind. Dr. Kike MD, PGY 2 Documentation for date of: 05/21/24 Subjective Subjective Interval history: No overnight events reported for patient. Patient continues to have radiculopathy. Patient worked with PT but was only able to ambulate short distances within her room. Patient had excruciating pain 10 out of 10 when trying to do so. PT recommended physical therapy as outpatient. Patient described pain radiating from hip region moving down towards the lower extremities, bilaterally. Patient now has paresthesias on left lower extremity. Patellar reflex decreased on left side. Lactulose added by Dr. Larson and administered this morning. No bowel movement reported during the afternoon. Pending MRI. Exam Vital Signs Temp Pulse Resp BP Pulse Ox O2 Del Method 97.3 F 76 16 96/58 L 99 Room Air 05/21/24 08:00 05/21/24 08:00 05/21/24 08:00 05/21/24 08:00 05/21/24 08:00 05/21/24 08:00 Narrative Exam General Appearance: Alert & Oriented X3, well-nourished female who is lying in bed in mild discomfort. Lower lumbar tenderness. HEENT: Skull symmetrical and atraumatic. Conjunctivae pin and moist. Pupils equal, round, reactive to light and accommodation (PERRL). External ear without lesion or discharge. Straight, nares patient, mucosa pink, no discharge. No thyroid nodule appreciated. No cervical lymphadenopathy. Cardio: Normal Rate and Rhythm with S1 and S2 heart sounds. No murmurs or extra heart sounds auscultated. No bruits on carotid auscultation. No peripheral edema or cyanosis. Lungs: Symmetric with good expansion. Chest and back non-tender. Breath sounds vesicular without crackles, wheezing or rhonchi Abdomen: Non-tender, Non-distended, Normal Reactive Bowel Sounds Neuro: Alert, cooperative, oriented to person, place, and time. Speech clear. CN grossly intact. Upper motor strength 5/5. Right lower motor 5/5 and left lower motor strength 3/5 with decreased patellar reflexes. Sensation intact and equal bilaterally. Objective Labs 05/21/24 05:23 05/21/24 05:23 Labs: Laboratory Results - last 24 hr 05/21/24 05:23 WBC 7.3 RBC 3.56 L Hgb 10.4 L Hct 30.5 L MCV 86 MCH 29.2 MCHC 34.1 RDW Std Deviation 39.3 Plt Count 265 D Neut % (Auto) 56 Lymph % (Auto) 35 [place] % (Auto) 7 Eos % (Auto) 2 Baso % (Auto) 0 Neut # (Auto) 4.1 Lymph # (Auto) 2.6 [place] # (Auto) 0.5 Eos # (Auto) 0.1 Baso # (Auto) 0.0 Immature Gran # (Auto) 0.04 H Absolute Nucleated RBC 0.00 Immature Gran % 1 H Nucleated RBC % 0 Sodium 141 Potassium 3.8 Chloride 107 Carbon Dioxide 27.6 Anion Gap 6 L BUN 18 Creatinine 0.6 Estim Creat Clear Calc 138.4 eGFR > 60 BUN/Creatinine Ratio 30 H Glucose 93 D Calculated Osmolality 283 Calcium 9.3 Corrected Calcium 9.3 Phosphorus 2.7 Magnesium 2.3 Total Bilirubin 0.3 AST 19 ALT 33 Alkaline Phosphatase 69 Total Protein 6.9 Albumin 4.1 D Globulin 2.8 Albumin/Globulin Ratio 1.5 Quality Measures Quality Measures none Assessment & Plan Assessment Current Active Medications: Generic Name Dose Route Start Last Admin Trade Name Freq PRN Reason Stop Dose Admin Acetaminophen 650 mg 05/20/24 10:53 Acetaminophen 325 Mg Tablet PO 06/18/24 22:12 Q6H PRN Fever >100.3 Hydrocodone Bitart/Acetaminophen 1 tab 05/20/24 04:46 05/20/24 21:07 Hydrocodone/Apap 5/325 Tablet PO 05/25/24 04:45 1 tab Q4HR PRN Administration Pain 6-10 Lactulose 20 gm 05/20/24 13:15 05/21/24 08:56 Lactulose Syrup 20 Gm/30 Ml Udc PO 06/19/24 13:14 20 gm DAILY BRANDI Administration Protocol Magnesium Hydroxide 30 ml 05/19/24 22:13 Milk Of Magnesia Susp 30 Ml Udc PO 06/18/24 22:12 QDAY PRN CONSTIPATION Protocol Melatonin 3 mg 05/20/24 19:11 Melatonin 3 Mg Tablet PO 06/19/24 20:59 HS PRN insomnia Morphine Sulfate 2 mg 05/20/24 10:53 05/21/24 10:12 Morphine Sulf Inj 10 Mg/Ml Vial IVP 05/25/24 04:46 2 mg Q6HR PRN Administration BREAKTHROUGH PAIN (SEVERE) Ondansetron HCl 4 mg 05/19/24 22:13 05/20/24 05:32 Ondansetron Inj 2 Mg/Ml Inj 2 Ml IV 06/18/24 22:12 4 mg Q6H PRN Administration NAUSEA OR VOMITING Protocol Polyethylene Glycol 17 gm 05/20/24 13:15 05/21/24 08:56 Polyethylene Glycol 17 Gm Packet PO 06/19/24 13:14 17 gm BID BRANDI Administration Plan A 29-year-old female with no significant past medical history presented to the hospital with chief complaints of sudden onset intractable back pain and admitted for pain control in the view of severe spinal stenosis at L5/S1 # Intractable back pain secondary to mechanical fall # Secondary to severe lumbar stenosis at L5/S1 due to disc bulge #Constipation Likely secondary to lumbar trauma experienced 6 months ago secondary to mechanical fall causing injury to lumbar spine. Lumbar spine recently exacerbated by URI and cough. Patient lower extremity radiopathy, with decreased patellar reflexes, and decreased motor strength (3/5) as compared to right lower extremtiy. CT lumbar showed protruding disc at L2-S1. TSH decreased but T4 within limits. Pending MRI. Will likely require outpatient follow up with spinal neurology surgeon. Constipation recently worsened since fall. No bowel movement recorded: Lactulose, Miralax, and Senna added. PT-->PT outpatient Diagnostics: -Lumbar spine CT showed severe spinal stenosis at L5/S1 due to disc bulge of 9 mm Plan -MRI of LS spine is ordered, AM 05/21-pending -A dose of dexamethasone 10 Mg IV is given x1 -[place] 5 every fourth hourly as needed -Morphine 2 Mg IV push for breakthrough pain -Monitor for neurological deficits/ -If pain is not controlled with the oral and IV medications, intrafacet injection analgesia pending MRI results. -Recommended to follow-up with neurosurgeon on outpatient basis # Normocytic normochromic anemia -Hemoglobin at the time of admission is 11.9 -Can follow-up in outpatient basis for further management Plan: No acute intervention Hospital Maintenance: Dispo: medsurg for observation, pending MRI lumbar DVT ppx: SCD GI ppx: not needed Diet: Regular IV lines: Peripheral Code status: Full - The patient's plan was discussed with attending Dr. Prescott and senior residents Dr. Kike Stringer MD PGY1 Internal Medicine Attending Provider Attestation/Addendum I attest that I was physically present for the evaluation, physical examination, lab and imaging review of the patient with the residents. I discussed the case with the residents and agree with the findings and plans of care as documented above. At bedside, patient continues to complain of back pain radiating to her left left/foot. Pain is manageable with analgesics. She also complains of decreased sensation on her left leg. Awaiting MRI results. Edson Prescott MD
[2024-05-21 12:00] VITALS: BP 126/81; PULSE 88; RESP 17; TEMP 36.7; O2SAT 97
[2024-05-21] MEDS: HYDROcodone/APAP 5/325 TABLET 1 TAB PO ×3 (13:40→23:08)
--- NOTE | 2024-05-21 14:57 | PC.SS ---
Patient Yanet Kaminski is a 29 Year old female admitted for Back pain. SS met with patient at bedside to discuss discharge plan. Patient reports she lives alone at home. She reports her sister, Janet Kaminski and mother, Estela Kaminski are decision makers. Prior to admission patient was able to ambulate. Choice of pharmacy is [facility]. PCP is Lauren Yo. At time of discharge patient will return home. Family will provide transportation. Next of Kin:Sister, Janet Kaminski [phone] and mother, Thai Kaminski [phone] Discharge plan: Home
[2024-05-21 16:00] VITALS: BP 111/71; PULSE 81; RESP 18; TEMP 36.8; O2SAT 97
[2024-05-21 20:00] VITALS: BP 116/78; PULSE 82; RESP 18; TEMP 36.4; O2SAT 99
--- NOTE | 2024-05-21 20:30 | PD.IMPROG ---
Documentation for date of: 05/21/24 Subjective Subjective Interval history: Patient evaluated Still has a lot of pain MRI of the lumbosacral spine done there is a L4-5 HNP Intra facet block will be tomorrow hopefully for pain control If no help improve mentioned to be done by neurosurgery Exam Vital Signs Temp Pulse Resp BP Pulse Ox O2 Del Method 98.3 F 81 18 111/71 97 Room Air 05/21/24 16:00 05/21/24 16:00 05/21/24 16:00 05/21/24 16:00 05/21/24 16:00 05/21/24 16:00 Objective Labs 05/21/24 05:23 05/21/24 05:23 Labs: Laboratory Results - last 24 hr 05/21/24 05:23 WBC 7.3 RBC 3.56 L Hgb 10.4 L Hct 30.5 L MCV 86 MCH 29.2 MCHC 34.1 RDW Std Deviation 39.3 Plt Count 265 D Neut % (Auto) 56 Lymph % (Auto) 35 [place] % (Auto) 7 Eos % (Auto) 2 Baso % (Auto) 0 Neut # (Auto) 4.1 Lymph # (Auto) 2.6 [place] # (Auto) 0.5 Eos # (Auto) 0.1 Baso # (Auto) 0.0 Immature Gran # (Auto) 0.04 H Absolute Nucleated RBC 0.00 Immature Gran % 1 H Nucleated RBC % 0 Sodium 141 Potassium 3.8 Chloride 107 Carbon Dioxide 27.6 Anion Gap 6 L BUN 18 Creatinine 0.6 Estim Creat Clear Calc 138.4 eGFR > 60 BUN/Creatinine Ratio 30 H Glucose 93 D Calculated Osmolality 283 Calcium 9.3 Corrected Calcium 9.3 Phosphorus 2.7 Magnesium 2.3 Total Bilirubin 0.3 AST 19 ALT 33 Alkaline Phosphatase 69 Total Protein 6.9 Albumin 4.1 D Globulin 2.8 Albumin/Globulin Ratio 1.5 Impressions Impression: # L4-5 herniated nucleus pulposus causing severe degree of pain and discomfort Continue pain medication till intra facet block is done Assessment & Plan A&P Narrative # Obstipation constipation # Pain abdomen secondary to the 1 MiraLAX twice a day Lactulose 20 mg p.o. daily # Lumbosacral radiculopathy with herniated nucleus pulposus at L4-5 level MRI of the lumbosacral spine without contrast Interventional radiology to do thecal block at the L4-5 level tomorrow after MRI of the lumbosacral spine Pain control Possible transfer to a tertiary center after the MRI if the epidural block does not work for the surgical intervention as the disc is shattered at the L4-5 level Time Spent With Patient Time: Total time spent is greater than 50% in coordination of care (as documented) at patient's floor/unit and/or counseling patient:
[2024-05-21] MEDS: PROMETHAZINE INJ 12.5 MG in SODIUM CHLORIDE 0.9% 50 ML 2.5 MG IV (23:00)
[2024-05-22] VITALS: BP 93/64; PULSE 66; RESP 18; TEMP 36.2; O2SAT 96
[2024-05-22 04:00] VITALS: BP 91/59; PULSE 71; RESP 18; TEMP 36.1; O2SAT 98
[2024-05-22] MEDS: MORPHINE SULF INJ 10 MG/ML VIAL 2 MG IVP ×4 (04:57→23:09)
[2024-05-22 06:10] LABS: Basophils % (Auto) 1 % (0-2.5); Eosinophils # (Auto) 0.4 Thou/mm3 (0.0-0.5); Eosinophils % (Auto) 6 % (0-10); Hematocrit 33.7 % (36.0-46.0); Hemoglobin 11.1 g/dL (12.0-16.0); Immature Granulocytes % (Auto) 2 % (0-0); Lymphocytes % (Auto) 47 % (10-50); Mean Corpuscular HGB Conc 32.9 g/dl (31.0-37.0); Mean Corpuscular Hemoglobin 28.7 pg (25.0-35.0); Mean Corpuscular Volume 87 fL (80-100); Monocytes # (Auto) 0.5 Thou/mm3 (0.0-0.8); Monocytes % (Auto) 8 % (0-12); Neutrophils # (Auto) 2.4 Thou/mm3 (1.8-7.7); Neutrophils % (Auto) 37 % (37-80); Nucleated Red Blood Cell % 0 /100 WBC (0); Platelet Count 310 Thou/mm3 (140-440); RDW Standard Deviation 39.8 fL (36.4-46.3); Red Blood Count 3.87 Miln/mm3 (4.00-5.20); White Blood Count 6.4 Thou/mm3 (3.6-11.0)
[2024-05-22] MEDS: HYDROcodone/APAP 5/325 TABLET 1 TAB PO ×4 (06:30→19:22)
[2024-05-22 06:36] LABS: Alanine Aminotransferase 27 U/L (10-49); Albumin, Serum 4.1 gm/dL (3.5-5.0); Albumin/Globulin Ratio 1.4 (1.2-2.2); Alkaline Phosphatase 70 U/L (46-116); Anion Gap 7 (7-16); Aspartate Amino Transferase 15 U/L (0-34); BUN/Creatinine Ratio 28 Ratio (12-20); Bilirubin,Total 0.2 mg/dL (0.3-1.2); Blood Urea Nitrogen 17 mg/dL (9-23); Calcium 8.9 mg/dL (8.3-10.6); Calcium (Corrected) 8.9 mg/dL (8.5-10.1); Chloride 106 mMol/L (98-107); Creatinine (Component) 0.6 mg/dL (0.6-1.3); Estimated Creatinine Clearance 138.4 mL/min (>60); Globulin 2.9 gm/dL (2.3-3.5); Glucose 90 mg/dL (74-106); Magnesium 2.2 mg/dL (1.6-2.6); Osmolality,Calculated 280 (275-295); Phosphorous 4.1 mg/dL (2.4-5.1); Potassium 4.3 mMol/L (3.4-5.1); Sodium 140 mMol/L (136-145); eGFR > 60 See Note
[2024-05-22 08:00] VITALS: BP 96/62; PULSE 74; RESP 18; TEMP 36.1; O2SAT 97
[2024-05-22] MEDS: POLYETHYLENE GLYCOL 17 GM PACKET PO ×2 (08:58→21:16)
[2024-05-22] MEDS: LACTULOSE SYRUP 20 GM/30 ML UDC PO (08:58)
[2024-05-22] MEDS: SODIUM CHLORIDE 0.9% 500 ML 500 ML 999 ML IV (09:41)
[2024-05-22 12:00] VITALS: BP 111/69; PULSE 83; RESP 18; TEMP 36.9; O2SAT 97
--- NOTE | 2024-05-22 12:37 | ESPR_ITS ---
<Statement entered by Efrain Stokes MD - 05/22/24 15:21> Patient was seen and examined at the bedside. Patient reported that her pain has been worsening despite receiving opioids and she is feeling numbness and tingling sensations in both lower extremities. MRI showed L4-L5 extrusion with disc bulge therefore neurologist was consulted for further evaluation and recommendations and possible requirement of transfer. Her blood pressure was soft this morning therefore IV fluid resuscitation were given. Will follow-up with neurology recommendation.Patient might need transfer out however will wait for neurology to give recommendations. All labs and orders were reviewed. Patient was updated regarding the plan. I saw and examined the patient, and I agree with current management stated by Dr Myke MD,PGY1. Plan of care was discussed with the attending physician and resident physician. Disclaimer: Despite multiple revisions, due to the dictation software being used, the document bellow may not be free of grammatical errors including phonetic/typographic errors. However, this does not deter from our commitment to providing health care in the patient's best interest in mind. Dr. Kike MD, PGY 2 Documentation for date of: 05/22/24 Subjective Subjective Interval history: No overnight events reported for patient. Patient continues to have increasing lumbar and pain radiating at the hip moving down towards lower extremities bilaterally. Decreased lower extremity strength. Patient had 1 bowel movement today after enema given. Patient continues to have paresthesia. Difficulty ambulating. Patient will likely be transferred out to [facility], after MRI showed L4-L5 large extruded right central paracentral disc bulge severely in pain imaging the right L5 nerve root. Dr. Larson following patient. Dr Petersen consulted. Exam Vital Signs Temp Pulse Resp BP Pulse Ox O2 Del Method 97.0 F 74 18 96/62 97 Room Air 05/22/24 08:00 05/22/24 08:00 05/22/24 08:00 05/22/24 08:00 05/22/24 08:00 05/22/24 08:00 Narrative Exam General Appearance: Alert & Oriented X3, well-nourished female who is lying in bed in mild discomfort. Lower lumbar tenderness. HEENT: Skull symmetrical and atraumatic. Conjunctivae pin and moist. Pupils equal, round, reactive to light and accommodation (PERRL). External ear without lesion or discharge. Straight, nares patient, mucosa pink, no discharge. No thyroid nodule appreciated. No cervical lymphadenopathy. Cardio: Normal Rate and Rhythm with S1 and S2 heart sounds. No murmurs or extra heart sounds auscultated. No bruits on carotid auscultation. No peripheral edema or cyanosis. Lungs: Symmetric with good expansion. Chest and back non-tender. Breath sounds vesicular without crackles, wheezing or rhonchi Abdomen: Non-tender, Non-distended, Normal Reactive Bowel Sounds Neuro: Alert, cooperative, oriented to person, place, and time. Speech clear. CN grossly intact. Upper motor strength 5/5. Right lower motor 3/5 and left lower motor strength 2/5 with decreased patellar reflexes. Sensation intact and equal bilaterally. bilateral lower extremity paresthesia. Objective Labs 05/23/24 05:15 05/23/24 05:15 Labs: Laboratory Results - last 24 hr 05/22/24 05:30 WBC 6.4 RBC 3.87 L Hgb 11.1 L Hct 33.7 L MCV 87 MCH 28.7 MCHC 32.9 RDW Std Deviation 39.8 Plt Count 310 D Neut % (Auto) 37 Lymph % (Auto) 47 [place] % (Auto) 8 Eos % (Auto) 6 Baso % (Auto) 1 Neut # (Auto) 2.4 Lymph # (Auto) 3.0 [place] # (Auto) 0.5 Eos # (Auto) 0.4 Baso # (Auto) 0.0 Immature Gran # (Auto) 0.10 H Absolute Nucleated RBC 0.00 Immature Gran % 2 H Nucleated RBC % 0 Sodium 140 Potassium 4.3 D Chloride 106 Carbon Dioxide 27.0 Anion Gap 7 BUN 17 Creatinine 0.6 Estim Creat Clear Calc 138.4 eGFR > 60 BUN/Creatinine Ratio 28 H Glucose 90 Calculated Osmolality 280 Calcium 8.9 Corrected Calcium 8.9 Phosphorus 4.1 Magnesium 2.2 Total Bilirubin 0.2 L AST 15 ALT 27 Alkaline Phosphatase 70 Total Protein 7.0 Albumin 4.1 Globulin 2.9 Albumin/Globulin Ratio 1.4 Quality Measures Quality Measures none Assessment & Plan Assessment Current Active Medications: Generic Name Dose Route Start Last Admin Trade Name Freq PRN Reason Stop Dose Admin Acetaminophen 650 mg 05/20/24 10:53 Acetaminophen 325 Mg Tablet PO 06/18/24 22:12 Q6H PRN Fever >100.3 Hydrocodone Bitart/Acetaminophen 1 tab 05/20/24 04:46 05/22/24 10:28 Hydrocodone/Apap 5/325 Tablet PO 05/25/24 04:45 1 tab Q4HR PRN Administration Pain 6-10 Benzonatate 200 mg 05/21/24 13:27 Benzonatate 100 Mg Capsule PO 06/20/24 13:26 Q8HR PRN COUGH Protocol Lactulose 20 gm 05/20/24 13:15 05/22/24 08:58 Lactulose Syrup 20 Gm/30 Ml Udc PO 06/19/24 13:14 20 gm DAILY BRANDI Administration Protocol Magnesium Hydroxide 30 ml 05/19/24 22:13 Milk Of Magnesia Susp 30 Ml Udc PO 06/18/24 22:12 QDAY PRN CONSTIPATION Protocol Melatonin 3 mg 05/20/24 19:11 Melatonin 3 Mg Tablet PO 06/19/24 20:59 HS PRN insomnia Morphine Sulfate 2 mg 05/20/24 10:53 05/22/24 11:14 Morphine Sulf Inj 10 Mg/Ml Vial IVP 05/25/24 04:46 2 mg Q6HR PRN Administration BREAKTHROUGH PAIN (SEVERE) Ondansetron HCl 4 mg 05/19/24 22:13 05/20/24 05:32 Ondansetron Inj 2 Mg/Ml Inj 2 Ml IV 06/18/24 22:12 4 mg Q6H PRN Administration NAUSEA OR VOMITING Protocol Polyethylene Glycol 17 gm 05/20/24 13:15 05/22/24 08:58 Polyethylene Glycol 17 Gm Packet PO 06/19/24 13:14 17 gm BID BRANDI Administration Sennosides 1 tab 05/21/24 15:23 Senna Tablet PO 06/20/24 15:22 QDAY PRN CONSTIPATION Protocol Plan A 29-year-old female with no significant past medical history presented to the hospital with chief complaints of sudden onset intractable back pain and admitted for pain control in the view of severe spinal stenosis at L5/S1 # Intractable back pain secondary to mechanical fall # Secondary to severe lumbar stenosis at L5/S1 due to disc bulge #Constipation, improved Likely secondary to lumbar trauma experienced 6 months ago secondary to mechanical fall causing injury to lumbar spine. Lumbar spine recently exacerbated by URI and cough. Patient lower extremity radiopathy, with decreased patellar reflexes, and decreased motor strength (3/5) as compared to right lower extremtiy. CT lumbar showed protruding disc at L2-S1. TSH decreased but T4 within limits. Constipation recently worsened since fall. No bowel movement recorded: Lactulose, Miralax, and Senna added. Constipation secondary to Morphine medication for pain management and history of IBS. MRI shows displaced right L5 secondary to budge of disc. Worsening lower extremity symptoms of paresthesia, decreased motor strength, and decreased left patellar reflex. No saddle anesthesia noted or incontinence. Diagnostics: -MRI Lumbar (05/21/2024): L4-L5 large extruded central right paracentral disc bulge severely indenting the thecal sac and displacing the right L5 nerve root -Lumbar spine CT (05/19/2024): showed severe spinal stenosis at L5/S1 due to disc bulge of 9 mm Plan -A dose of dexamethasone 10 Mg IV is given x1 on admission on 05/19/2024 -[place] 5 every fourth hourly as needed -Morphine 2 Mg IV push for breakthrough pain -Monitor for neurological deficits/ -If pain is not controlled with the oral and IV medications, intrafacet injection analgesia pending MRI results. -Consulted Dr. Nicola elizabeth, appreciate recommendations -Pending Transfer to [facility] # Normocytic normochromic anemia -Hemoglobin at the time of admission is 11.9 -Can follow-up in outpatient basis for further management Plan: No acute intervention Hospital Maintenance: Dispo: medsurg for observation, pending MRI lumbar DVT ppx: SCD GI ppx: not needed Diet: Regular IV lines: Peripheral Code status: Full - The patient's plan was discussed with attending Dr. Prescott and senior residents Dr. Kike Stringer MD PGY1 Internal Medicine Attending Provider Attestation/Addendum I attest that I was physically present for the evaluation, physical examination, lab and imaging review of the patient with the residents. I discussed the case with the residents and agree with the findings and plans of care as documented above. Edson Prescott MD
--- NOTE | 2024-05-22 12:52 | PC.NURSE ---
Administered a water enema. Patient had a bowel movement. Will continue to monitor patient.
[2024-05-22 16:00] VITALS: BP 121/90; PULSE 71; RESP 18; TEMP 36.6; O2SAT 99
--- NOTE | 2024-05-22 16:38 | PC.CM ---
Addendum entered by Inez Roe RN 05/23/24 02:36: 0236 Spoke to Arpit at [facility] she states pt is accepted they received the TBA and pt is pending a bed Addendum entered by Inez Roe RN 05/22/24 22:05: 2205 TBA signed and faxed back to [facility] Addendum entered by Ezekiel Orozco RN 05/22/24 19:51: 1951 transfer packet with CD inside is complete including physician signature, pending pt signature. Addendum entered by Ezekiel Orozco RN 05/22/24 19:47: [address] Annie at [facility] and she confirmed she received the clinicals. Addendum entered by Ezekiel Orozco RN 05/22/24 18:48: 1848 clinicals sent to [facility]. Addendum entered by Ezekiel Orozco RN 05/22/24 17:40: 1730 called [facility], spoke to [place] and initiated the transfer. She stated to fax clinicals and she will confirm first with Dr. Elmer Conde. [address] Elmer Conde and he stated to reach out to [facility] and let the TC know, he wants to do emergency spine surgery on the pt., hence need immediate transfer and a floor bed is appropriate, pt doesn't need ICU or step down. Original Note: [address] Petersen that pt needs to be transferred to [facility] for lumbar reticulopathy. She stated she already spoke to Dr. Pia Narayan/neuro surgeon at [facility] and he accepted the pt. She gave me direct number to call.
--- NOTE | 2024-05-22 18:01 | ESDS_ITS ---
<Statement entered by Efrain Stokes MD - 05/23/24 07:26> I saw and examined the patient, and I agree with current management stated by Dr Myke MD,PGY1. Plan of care was discussed with the attending physician and resident physician. Disclaimer: Despite multiple revisions, due to the dictation software being used, the document bellow may not be free of grammatical errors including phonetic/typographic errors. However, this does not deter from our commitment to providing health care in the patient's best interest in mind. Dr. Kike MD, PGY 2 Planned Discharge Date 05/22/24 DS: Providers Provider Date of admission: 05/21/24 08:03 Primary care physician: Lauren Yo([facility])NESTOR Admitting Provider: Jordy Hector MD Attending Provider on Admission: Jordy Hector MD Consults: 05/19/24 21:34 Consult to Gastroenterology Stat Comment: Constipation, back pain Consulting Provider: Meng Larson 05/20/24 04:47 Referral Physical Therapy Routine Comment: Physician Instructions: 05/22/24 09:02 Consult to Neurology / Tele-Neurology Routine Comment: Consulting Provider: Olivier Petersen 05/22/24 16:24 Referral - Chief Medical Technologist Stat Service Needed for Transfer: Neurosurgery Addl Comments:: This 29-year-old female with past medical history of chronic constipation and had a ground level fall 6 months ago presented with sudden onset intractable back pain only improved with opioids and admitted for pain control in the view of severe spinal stenosis at L5/S1.Lumbar spine CT showed severe spinal stenosis at L5/S1 due to disc bulge of 9 mm. She is Alert & Oriented X3. Able to move legs, not ambulating currently due to pain, able to feel her lower ext sensory sensations, She is able to urinate and passing bowel movement. MRI lumbar showed L4-L5 large extruded central right paracentral disc bulge severely indenting the thecal sac and displacing the right L5 nerve root. Neurology consulted and she recommended to transfer patient to higher care facility for neurosurgery evaluation. Attending Provider on DC: Sindy Stringer MD Discharging Provider: Sindy Stringer MD DS: Diagnosis Problem List Completed Was Problem List Reviewed/Reconciled?: Yes Hospital Course Hospital Course Hospital course: Summary: A 29-year-old female with no significant past medical history presented to the hospital with chief complaints of sudden onset intractable back pain secondary to a mechanical fall 6 months ago when her lumbar spine hit a rock. Initial lumbar CT (05/19/2024) showed severe spinal stenosis at L5/S1 due to disc buldge at 9 mm. Patient continues to be Alert and Oriented through out hospital stay. Patient was found to have disc bulging at the L4-L5 with nerve displacement at the right L5 nerve root as note on MRI (05/21/2024). Hospital Course: Patient is a 29-year-old female with a limited past medical history of irritable bowel syndrome who was [facility]24 overnight with a chief complaint of lower back pain worsened by cough after upper respiratory illness. Patient had a mechanical fall when her back hit a rock. Patient stated that pain initially resolved but this prompted to the emergency room on 05/19/2024 secondary to severe lower back pain 10 out of 10 with decreasing lower extremity mobility. Patient then received an MRI lumbar and 05/21/2024 that showed a L4-L5 large extruded central right paracentral disc bulge severely nearly indenting the thecal sac and displacing the right L5 nerve root. Patient has reported bilateral paresthesias. Continued pain 10 out of 10 radiating from her lower back and hips bilaterally then descending down towards lower extremities. Decreased motor strength bilaterally, worse on left lower extremity 3 out of 5. Decreased ambulation.Decreased patellar reflexes on the left lower extremity. Patient denied saddle anesthesia. Still has bilateral sensation from the lower extremities all the way to groin region. Neurology consutled, recommended patient to be transfered to a higher care center for possible neurosurgery evaluation and intervention. Medications given in hospital: Pain Management: Acetaminophen 650 PO Q6HRs, [place] 5 PO Q4HRs PRN, Morphine 2 mg IV Q6HRs PRN Bowel Regiment: Lactulose, Milk of Magnesia, Water Enema Cough: Promethazine PRN Disposition: Transfer to [facility] Diagnosis # Intractable back pain secondary to mechanical fall # Secondary to severe lumbar stenosis at L5/S1 due to disc bulge #Constipation, improved # Normocytic normochromic anemia - The patient's plan was discussed with attending Dr. Prescott and senior residents Dr. Kike Stringer MD PGY1 Internal Medicine Time Spent with Patient Time attestation: Total time spent providing and/or coordinating discharge services: at least 35 minutes of care and coordination Exam Vital Signs Temp Pulse Resp BP Pulse Ox O2 Del Method 97.9 F 71 18 121/90 H 99 Room Air 05/22/24 16:00 05/22/24 16:00 05/22/24 16:00 05/22/24 16:00 05/22/24 16:00 05/22/24 16:00 Narrative Exam General Appearance: Alert & Oriented X3, well-nourished female who is lying in bed in mild discomfort. Lower lumbar tenderness. HEENT: Skull symmetrical and atraumatic. Conjunctivae pin and moist. Pupils equal, round, reactive to light and accommodation (PERRL). External ear without lesion or discharge. Straight, nares patient, mucosa pink, no discharge. No thyroid nodule appreciated. No cervical lymphadenopathy. Cardio: Normal Rate and Rhythm with S1 and S2 heart sounds. No murmurs or extra heart sounds auscultated. No bruits on carotid auscultation. No peripheral edema or cyanosis. Lungs: Symmetric with good expansion. Chest and back non-tender. Breath sounds vesicular without crackles, wheezing or rhonchi Abdomen: Non-tender, Non-distended, Normal Reactive Bowel Sounds Neuro: Alert, cooperative, oriented to person, place, and time. Speech clear. CN grossly intact. Upper motor strength 5/5. Right lower motor 3/5 and left lower motor strength 2/5 with decreased patellar reflexes. Sensation intact and equal bilaterally. bilateral lower extremity paresthesia. Discharge Plan Plan Patient Disposition: [facility] Acute Care Fac Service Needed for Transfer: Neurosurgery Prescriptions/Referrals Prescriptions/Med Rec: No Action hydrochlorothiazide 12.5 mg Tablet 10 mg PO QDAY Referrals: Lauren Yo PA-C ([facility]) [Primary Care Provider] - Patient/Caregiver Discharge Instructions Discharge Activity: activity as tolerated Print Language: Estonian Stand Alone Forms: [facility] Award Info., Patient Portal Info Letter Discharge Order Discharge Orders: Discharge (Routine); Ordered 05/23/24 Ordered By: Efrain Stokes Quality Discharge Quality Measures VTE prophylaxis Attestestation MD Attestation I attest that I was physically present for the evaluation, physical examination, lab and imaging review of the patient with the residents. I discussed the case with the residents and agree with the findings and plans of care as documented above. Edson Prescott MD
[2024-05-22 20:00] VITALS: BP 107/72; PULSE 72; RESP 17; TEMP 36.9; O2SAT 98
--- NOTE | 2024-05-22 20:50 | ESPR_ITS ---
Documentation for date of: 05/22/24 Subjective Subjective Interval history: Severely displaced L4-5 shattered disc I will call [facility] and try to get the patient transferred there Patient can go home as the severity of the pain is too much and the intra facet block may not work Exam Vital Signs Temp Pulse Resp BP Pulse Ox O2 Del Method 97.9 F 71 18 121/90 H 99 Room Air 05/22/24 16:00 05/22/24 16:00 05/22/24 16:00 05/22/24 16:00 05/22/24 16:00 05/22/24 16:00 Objective Labs 05/22/24 05:30 05/22/24 05:30 Labs: Laboratory Results - last 24 hr 05/22/24 05:30 WBC 6.4 RBC 3.87 L Hgb 11.1 L Hct 33.7 L MCV 87 MCH 28.7 MCHC 32.9 RDW Std Deviation 39.8 Plt Count 310 D Neut % (Auto) 37 Lymph % (Auto) 47 [place] % (Auto) 8 Eos % (Auto) 6 Baso % (Auto) 1 Neut # (Auto) 2.4 Lymph # (Auto) 3.0 [place] # (Auto) 0.5 Eos # (Auto) 0.4 Baso # (Auto) 0.0 Immature Gran # (Auto) 0.10 H Absolute Nucleated RBC 0.00 Immature Gran % 2 H Nucleated RBC % 0 Sodium 140 Potassium 4.3 D Chloride 106 Carbon Dioxide 27.0 Anion Gap 7 BUN 17 Creatinine 0.6 Estim Creat Clear Calc 138.4 eGFR > 60 BUN/Creatinine Ratio 28 H Glucose 90 Calculated Osmolality 280 Calcium 8.9 Corrected Calcium 8.9 Phosphorus 4.1 Magnesium 2.2 Total Bilirubin 0.2 L AST 15 ALT 27 Alkaline Phosphatase 70 Total Protein 7.0 Albumin 4.1 Globulin 2.9 Albumin/Globulin Ratio 1.4 Impressions Impression: # L4-5 shattered disc with HNP causing severe intrathecal hide dentition Left a message for [facility] will transfer the patient there Assessment & Plan A&P Narrative # Obstipation constipation # Pain abdomen secondary to the 1 MiraLAX twice a day Lactulose 20 mg p.o. daily # Lumbosacral radiculopathy with herniated nucleus pulposus at L4-5 level MRI of the lumbosacral spine without contrast Interventional radiology to do thecal block at the L4-5 level tomorrow after MRI of the lumbosacral spine Pain control Possible transfer to a tertiary center after the MRI if the epidural block does not work for the surgical intervention as the disc is shattered at the L4-5 level Time Spent With Patient Time: Total time spent is greater than 50% in coordination of care (as documented) at patient's floor/unit and/or counseling patient:
--- NOTE | 2024-05-22 23:01 | ESCONSULT_ITS ---
History of Present Illness Data of Consult Requesting Physician: Jordy Hector MD Primary Care Provider: Lauren Yo([facility]), NESTOR Consult Narrative History of present illness: Patient is a 29-year-old female with no significant past medical history presented to the hospital with chief complaints of severe intractable low back pain since Tuesday. 6 months [place] and developed back pain for few days following which it subsided. She did undergo periodic chiropractic manipulation few times which did not help when she had worsening low back pain. 1 week ago, patient was diagnosed with flu and was taking Tamiflu. Patient is having severe cough since then. On the day of admission, patient had severe coughing spell while sitting in the car following which she noted sudden onset lower back pain due to which she was not even able to mobilize and her friend had to help her. Patient has not been able to walk due to severe pain and also not able to bear weight on her legs due to severe tingling and numbness radiating from the low back to the foot. As the pain persisted, patient was brought to the hospital. Denies bowel, bladder incontinence/retention, saddle anesthesia. No recent illnesses/injury/fever with chills Workup in the ER: Vital signs: Afebrile and stable -Labs significant for Hb 11.9, ALT 51, urine analysis showed 1+ bacteria -Lumbar spine of CT showed 9 mm central disc bulge causing spinal stenosis at L5/S1 -In the ER, patient was given ketorolac, hydromorphone and got admitted to [facility] for further management and workup. As the MRI of the lumbosacral spine showed large disc bulge indenting the thecal sac, neurology was consulted cc:: cc: Jordy Hector MD Review of Systems Review of Systems Systems Reviewed: All systems reviewed, normal except as documented Past Medical History Surgical History OTHER SURGICAL HX: As in the history of present illness Meds Home Medications and Allergies Home Medications ?Medication ?Instructions ?Recorded ?Confirmed ?Type hydrochlorothiazide 12.5 mg tablet 10 mg PO QDAY 05/20/24 05/20/24 History Allergies Allergy/AdvReac Type Severity Reaction Status Date / Time No Known Allergies Allergy Verified 05/17/23 10:19 Exam - Neurology Vital Signs Temp Pulse Resp BP Pulse Ox O2 Del Method 98.5 F 72 17 107/72 98 Room Air 05/22/24 20:00 05/22/24 20:00 05/22/24 20:00 05/22/24 20:00 05/22/24 20:00 05/22/24 20:00 Narrative Exam GENERAL APPEARANCE: Well hydrated, well-nourished in no acute distress. HEENT: Normocephalic, atraumatic, extraocular movements intact. Pupils: Equal reacting to light and accommodation NECK: Supple, no JVD or bruits. CARDIOVASULAR: Heart: S1, S2 heard, regular without S3-S4 or murmur no rubs or gallops. LUNGS/CHEST: Clear to auscultation bilaterally. No rails, rhonchi, or wheezing. Normal inspection. ABDOMEN: Soft, nontender, with normal bowel sounds. No pulsatile masses. No rebound, rigidity, or guarding. Normal inspection and palpation. EXTREMITIES: Normal inspection and palpation. No edema, clubbing or cyanosis. SKIN: Warm and dry without rashes. Normal inspection. MUSCULOSKELETAL: No cervical, thoracic, lumbar or midline bony tenderness. Normal inspection. NEURO: Alert, awake and oriented x3. Cranial nerves: II through XII grossly intact. Speech and language: Normal with no dysarthria or dysphasia. Motor system: Tone and bulk: Normal: Strength: 5 out of 5 in both upper extremities; No pronator drift noted. Significantly weak in both lower extremities more so on the left. Deep tendon reflexes: 2+ bilaterally symmetrical. Plantar reflex: Downgoing bilaterally. Sensory system: Intact to all modalities of sensation bilaterally. Straight leg raising test: Positive on both sides, left worse than the right. Coordination: Intact to [id number]-gdca-[id number] test bilaterally. No ataxia, no dysmetria, or dysdiadochokinesia noted. No intention tremors noted. Gait: Cannot be tested. No signs of meningeal irritation noted. PSYCHIATRIC: Normal mood and affect. Results Labs 05/22/24 05:30 05/22/24 05:30 Labs: Short CBC 05/22/24 Range/Units 05:30 WBC 6.4 (3.6-11.0) Thou/mm3 Hgb 11.1 L (12.0-16.0) g/dL Hct 33.7 L (36.0-46.0) % Plt Count 310 D (140-440) Thou/mm3 BMP 05/22/24 05:30 Sodium 140 Potassium 4.3 D Chloride 106 Carbon Dioxide 27.0 BUN 17 Creatinine 0.6 Glucose 90 Calcium 8.9 Liver Function 05/22/24 Range/Units 05:30 Total Bilirubin 0.2 L (0.3-1.2) mg/dL AST 15 (0-34) U/L ALT 27 (10-49) U/L Alkaline Phosphatase 70 (46-116) U/L Albumin 4.1 (3.5-5.0) gm/dL Assessment & Plan Assessment and plan (1) Intractable low back pain: Status: Acute Assessment and plan: With MRI of the lumbosacral spine showing large disc bulge at L4-L5 severely indenting the thecal sac and displacing the right L5 nerve root Not getting any better with conservative measures/pain management No involvement of bowel or bladder, no sacral anesthesia. She has intractable pain and weakness, will transfer her to get neurosurgery urgently. Patient got accepted at [facility] by Dr. Conde. Will get the case management to get the transfer arrangement. Discussed the above plan with hospitalist team and rn field case manager/landscape architect and planner Dandre. Patient and the family is aware
[2024-05-23] VITALS: BP 108/61; PULSE 65; RESP 18; TEMP 36.5; O2SAT 97
[2024-05-23] MEDS: HYDROcodone/APAP 5/325 TABLET 1 TAB PO ×2 (00:19→06:27)
[2024-05-23 04:00] VITALS: BP 95/61; PULSE 77; RESP 18; TEMP 36.1; O2SAT 97
--- NOTE | 2024-05-23 04:30 | PC.NURSE ---
MATTHIAS FROM [facility] CALLED TO IF WHAT PATIENT PAIN MEDS AND THE DATE OF COVID TEST.
[2024-05-23] MEDS: MORPHINE SULF INJ 10 MG/ML VIAL 2 MG IVP (05:05)
[2024-05-23 06:04] LABS: Basophils % (Auto) 1 % (0-2.5); Eosinophils # (Auto) 0.4 Thou/mm3 (0.0-0.5); Eosinophils % (Auto) 6 % (0-10); Hematocrit 35.9 % (36.0-46.0); Hemoglobin 12.1 g/dL (12.0-16.0); Immature Granulocytes % (Auto) 3 % (0-0); Immature Granulocytes Auto 0.17 Thou/mm3 (0.00-0.00); Lymphocytes # (Auto) 2.8 Thou/mm3 (1.0-4.8); Lymphocytes % (Auto) 42 % (10-50); Mean Corpuscular HGB Conc 33.7 g/dl (31.0-37.0); Mean Corpuscular Hemoglobin 28.7 pg (25.0-35.0); Mean Corpuscular Volume 85 fL (80-100); Monocytes # (Auto) 0.6 Thou/mm3 (0.0-0.8); Monocytes % (Auto) 9 % (0-12); Neutrophils # (Auto) 2.6 Thou/mm3 (1.8-7.7); Neutrophils % (Auto) 40 % (37-80); Nucleated Red Blood Cell % 0 /100 WBC (0); Platelet Count 325 Thou/mm3 (140-440); RDW Standard Deviation 36.9 fL (36.4-46.3); Red Blood Count 4.21 Miln/mm3 (4.00-5.20); White Blood Count 6.6 Thou/mm3 (3.6-11.0)
[2024-05-23 06:43] LABS: Alanine Aminotransferase 42 U/L (10-49); Albumin, Serum 4.3 gm/dL (3.5-5.0); Anion Gap 7 (7-16); Aspartate Amino Transferase 30 U/L (0-34); BUN/Creatinine Ratio 21 Ratio (12-20); Bilirubin,Total 0.3 mg/dL (0.3-1.2); Blood Urea Nitrogen 15 mg/dL (9-23); Calcium 9.6 mg/dL (8.3-10.6); Calcium (Corrected) 9.6 mg/dL (8.5-10.1); Carbon Dioxide 27.6 mMol/L (20.0-31.0); Chloride 103 mMol/L (98-107); Creatinine (Component) 0.7 mg/dL (0.6-1.3); Estimated Creatinine Clearance 118.6 mL/min (>60); Glucose 88 mg/dL (74-106); Magnesium 2.3 mg/dL (1.6-2.6); Osmolality,Calculated 275 (275-295); Phosphorous 4.1 mg/dL (2.4-5.1); Potassium 4.4 mMol/L (3.4-5.1); Sodium 138 mMol/L (136-145); Total Protein 7.5 gm/dL (5.7-8.2); eGFR > 60 See Note
[2024-05-23 06:44] LABS: Albumin/Globulin Ratio 1.3 (1.2-2.2); Alkaline Phosphatase 73 U/L (46-116); Globulin 3.2 gm/dL (2.3-3.5)
[2024-05-23 08:00] VITALS: BP 96/63; PULSE 69; RESP 16; TEMP 36.7; O2SAT 97
[2024-05-23] MEDS: ONDANSETRON INJ 2 MG/ML INJ 2 ML 4 MG IV (08:21)
[2024-05-23] MEDS: PANTOPRAZOLE INJ 40 MG VIAL IV (08:57)
[2024-05-23] MEDS: RINGERS LACTATED 1000 ML 500 ML 999 ML IV (09:13)
[2024-05-23] MEDS: ACETAMINOPHEN 325 MG TABLET 650 MG PO (09:23)
--- NOTE | 2024-05-23 09:42 | PC.NURSE ---
Around 8:20 AM, patient vomited gastric contents (oat meal, her meal last night as verbalized) about 8oz. She also complains of headache 10/10. Administered zofran PRN and MD notified. New orders were given.
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
[2024-05-23] MEDS: LIDOCAINE 5% 1 PATCH TOP (11:06)
[2024-05-23] MEDS: KETOROLAC INJ 30 MG/ML VIAL 15 MG IVP ×2 (11:12→16:08)
[2024-05-23 12:00] VITALS: BP 111/64; PULSE 71; RESP 16; TEMP 35.8; O2SAT 98
--- NOTE | 2024-05-23 12:37 | PD.IMPROG ---
Documentation for date of: 05/23/24 Subjective Subjective Interval history: Bed became available [facility] Patient will be leaving today Exam Vital Signs Temp Pulse Resp BP Pulse Ox O2 Del Method 98.0 F 69 16 96/63 97 Room Air 05/23/24 08:00 05/23/24 08:00 05/23/24 08:00 05/23/24 08:00 05/23/24 08:00 05/23/24 08:00 Objective Labs 05/23/24 05:15 05/23/24 05:15 Labs: Laboratory Results - last 24 hr 05/23/24 05:15 WBC 6.6 RBC 4.21 Hgb 12.1 Hct 35.9 L MCV 85 MCH 28.7 MCHC 33.7 RDW Std Deviation 36.9 Plt Count 325 Neut % (Auto) 40 Lymph % (Auto) 42 [place] % (Auto) 9 Eos % (Auto) 6 Baso % (Auto) 1 Neut # (Auto) 2.6 Lymph # (Auto) 2.8 [place] # (Auto) 0.6 Eos # (Auto) 0.4 Baso # (Auto) 0.0 Immature Gran # (Auto) 0.17 H Absolute Nucleated RBC 0.00 Immature Gran % 3 H Nucleated RBC % 0 Sodium 138 Potassium 4.4 Chloride 103 Carbon Dioxide 27.6 Anion Gap 7 BUN 15 Creatinine 0.7 Estim Creat Clear Calc 118.6 eGFR > 60 BUN/Creatinine Ratio 21 H Glucose 88 Calculated Osmolality 275 Calcium 9.6 Corrected Calcium 9.6 Phosphorus 4.1 Magnesium 2.3 Total Bilirubin 0.3 AST 30 ALT 42 Alkaline Phosphatase 73 Total Protein 7.5 Albumin 4.3 Globulin 3.2 Albumin/Globulin Ratio 1.3 Impressions Impression: # L4-5 HNP with central disc Patient being transferred to [facility] for lumbosacral laminectomy and possible L4-5 fusion Assessment & Plan A&P Narrative # Obstipation constipation # Pain abdomen secondary to the 1 MiraLAX twice a day Lactulose 20 mg p.o. daily # Lumbosacral radiculopathy with herniated nucleus pulposus at L4-5 level MRI of the lumbosacral spine without contrast Interventional radiology to do thecal block at the L4-5 level tomorrow after MRI of the lumbosacral spine Pain control Possible transfer to a tertiary center after the MRI if the epidural block does not work for the surgical intervention as the disc is shattered at the L4-5 level Time Spent With Patient Time: Total time spent is greater than 50% in coordination of care (as documented) at patient's floor/unit and/or counseling patient:
--- NOTE | 2024-05-23 15:35 | ESDS_ITS ---
Planned Discharge Date 05/23/24 DS: Providers Provider Date of admission: 05/21/24 08:03 Primary care physician: Lauren Yo([facility])NESTOR Admitting Provider: Jordy Hector MD Attending Provider on Admission: Jordy Hector MD Consults: 05/19/24 21:34 Consult to Gastroenterology Stat Comment: Constipation, back pain Consulting Provider: Meng Larson 05/20/24 04:47 Referral Physical Therapy Routine Comment: Physician Instructions: 05/22/24 09:02 Consult to Neurology / Tele-Neurology Routine Comment: Consulting Provider: Olivier Petersen 05/22/24 16:24 Referral - Roll Scale Man Stat Service Needed for Transfer: Neurosurgery Addl Comments:: This 29-year-old female with past medical history of chronic constipation and had a ground level fall 6 months ago presented with sudden onset intractable back pain only improved with opioids and admitted for pain control in the view of severe spinal stenosis at L5/S1.Lumbar spine CT showed severe spinal stenosis at L5/S1 due to disc bulge of 9 mm. She is Alert & Oriented X3. Able to move legs, not ambulating currently due to pain, able to feel her lower ext sensory sensations, She is able to urinate and passing bowel movement. MRI lumbar showed L4-L5 large extruded central right paracentral disc bulge severely indenting the thecal sac and displacing the right L5 nerve root. Neurology consulted and she recommended to transfer patient to higher care facility for neurosurgery evaluation. Attending Provider on DC: Efrain Stokes MD Discharging Provider: Efrain Stokes MD DS: Diagnosis Problem List Completed Was Problem List Reviewed/Reconciled?: Yes Hospital Course Hospital Course Hospital course: This 29-year-old female with no significant past medical history presented to the hospital with chief complaint of sudden onset intractable back pain secondary to a mechanical fall 6 months ago when her lumbar spine hit a rock. Initial lumbar CT (05/19/2024) showed severe spinal stenosis at L5/S1 due to disc buldge at 9 mm. Patient continues to be Alert and Oriented X3 through out hospital stay. Patient was found to have disc bulging at the L4-L5 with nerve displacement at the right L5 nerve root as note on MRI (05/21/2024). Hospital Course: Patient is a 29-year-old female with a limited past medical history of irritable bowel syndrome who was admitted to [facility] on 05/19/2024 overnight with a chief complaint of lower back pain worsened by cough after upper respiratory illness. Patient had a mechanical fall when her back hit a rock. Patient stated that pain initially resolved but this prompted to the emergency room on 05/19/2024 secondary to severe lower back pain 10 out of 10 with decreasing lower extremity mobility. Patient then received an MRI lumbar and 05/21/2024 that showed a L4-L5 large extruded central right paracentral disc bulge severely nearly indenting the thecal sac and displacing the right L5 nerve root. Patient has reported bilateral paresthesias. Continued pain 10 out of 10 radiating from her lower back and hips bilaterally then descending down towards lower extremities. Decreased motor strength bilaterally, worse on left lower extremity 3 out of 5. Decreased ambulation.Decreased patellar reflexes on the left lower extremity. Patient denied saddle anesthesia. Still has bilateral sensation from the lower extremities all the way to groin region. Neurology consulted, recommended [facility]surgery evaluation and intervention. Of note, GI specialist recommended to continue bowel regime scheduled for chronic constipation. Will continue lactulose 20 g daily with MiraLAX 17 g twice daily additionally water enema was given after which patient passed a bowel movement. Medications given in hospital: Pain Management: Acetaminophen 650 PO Q6HRs, [place] 5 PO Q4HRs PRN, Morphine 2 mg IV Q6HRs PRN Bowel Regiment: Lactulose, Milk of Magnesia, Water Enema Cough: Promethazine PRN Disposition: Transfer to [facility] #Problem List: #Intractable back pain secondary to mechanical fall #Secondary to severe lumbar stenosis and extruded L4-L5 large central right paracentral disc bulge severely indenting the thecal sac and displacing the right L5 nerve root #Constipation, resolved #Normocytic normochromic anemia -- Patient was seen and discussed with attending Dr Krunal Stokes MD,PGY 2 Time Spent with Patient Time attestation: Total time spent providing and/or coordinating discharge services: Exam Vital Signs Temp Pulse Resp BP Pulse Ox O2 Del Method 96.5 F L 71 16 111/64 98 Room Air 05/23/24 12:00 05/23/24 12:05/23/24 12:05/23/24 12:05/23/24 12:00 05/23/24 12:00 Narrative Exam General Appearance: Alert & Oriented X3, well-nourished female who is lying in bed in mild discomfort. Lower lumbar tenderness. HEENT: Skull symmetrical and atraumatic. Conjunctivae pin and moist. Pupils equal, round, reactive to light and accommodation (PERRL). External ear without lesion or discharge. Straight, nares patient, mucosa pink, no discharge. No thyroid nodule appreciated. No cervical lymphadenopathy. Cardio: Normal Rate and Rhythm with S1 and S2 heart sounds. No murmurs or extra heart sounds auscultated. No bruits on carotid auscultation. No peripheral edema or cyanosis. Lungs: Symmetric with good expansion. Chest and back non-tender. Breath sounds vesicular without crackles, wheezing or rhonchi Abdomen: Non-tender, Non-distended, Normal Reactive Bowel Sounds Neuro: Alert, cooperative, oriented to person, place, and time. Speech clear. CN grossly intact. Upper motor strength 5/5. Right lower motor 3/5 and left lower motor strength 2/5 with decreased patellar reflexes. Sensation intact and equal bilaterally. bilateral lower extremity paresthesia. Discharge Plan Plan Patient Disposition: [facility] Service Needed for Transfer: Neurosurgery Prescriptions/Referrals Prescriptions/Med Rec: No Action hydrochlorothiazide 12.5 mg Tablet 10 mg PO QDAY Referrals: Srinath(Mo)Lauren PA-C [Primary Care Provider] - Patient/Caregiver Discharge Instructions Discharge Activity: activity as tolerated Print Language: Maldivian Stand Alone Forms: [place] Award Info., Patient Portal Info Letter Discharge Order Discharge Orders: Discharge (Routine); Ordered 05/23/24 Ordered By: Efrain Stokse Quality Discharge Quality Measures VTE prophylaxis Attestestation MD Attestation I have examined the patient, reviewed labs and imaging findings, discussed the case with the resident(s), and reviewed entered orders. I agree with the plan of care as outlined in this note, with these additional summaries/recommendations: Pending transfer to [facility]. Continue pain management. Dr. Hector
[2024-05-23 16:00] VITALS: BP 107/66; PULSE 67; RESP 16; TEMP 36.6; O2SAT 99
--- NOTE | 2024-05-23 18:42 | PC.NURSE ---
Patient is for transfer to [facility] in [place] for higher level of care. Report given to Kemar MELARA.
--- NOTE | 2024-05-23 19:29 | PD.VPROG1 ---
Telemedicine visit statement This visit was conducted with the use of phone was obtained on 05/23/24. Documentation for date of: 05/23/24 Virtual exam Vital Signs Temp Pulse Resp BP Pulse Ox O2 Del Method 97.9 F 67 16 107/66 99 Room Air 05/23/24 16:00 05/23/24 16:00 05/23/24 16:00 05/23/24 16:00 05/23/24 16:00 05/23/24 16:00 Objective Labs 05/23/24 05:15 05/23/24 05:15 Labs: Laboratory Results - last 24 hr 05/23/24 05:15 WBC 6.6 RBC 4.21 Hgb 12.1 Hct 35.9 L MCV 85 MCH 28.7 MCHC 33.7 RDW Std Deviation 36.9 Plt Count 325 Neut % (Auto) 40 Lymph % (Auto) 42 [place] % (Auto) 9 Eos % (Auto) 6 Baso % (Auto) 1 Neut # (Auto) 2.6 Lymph # (Auto) 2.8 [place] # (Auto) 0.6 Eos # (Auto) 0.4 Baso # (Auto) 0.0 Immature Gran # (Auto) 0.17 H Absolute Nucleated RBC 0.00 Immature Gran % 3 H Nucleated RBC % 0 Sodium 138 Potassium 4.4 Chloride 103 Carbon Dioxide 27.6 Anion Gap 7 BUN 15 Creatinine 0.7 Estim Creat Clear Calc 118.6 eGFR > 60 BUN/Creatinine Ratio 21 H Glucose 88 Calculated Osmolality 275 Calcium 9.6 Corrected Calcium 9.6 Phosphorus 4.1 Magnesium 2.3 Total Bilirubin 0.3 AST 30 ALT 42 Alkaline Phosphatase 73 Total Protein 7.5 Albumin 4.3 Globulin 3.2 Albumin/Globulin Ratio 1.3 Assessment & Plan Assessment 1) Intractable low back pain: Status: Acute Assessment and plan: With MRI of the lumbosacral spine showing large disc bulge at L4-L5 severely indenting the thecal sac and displacing the right L5 nerve root Not getting any better with conservative measures/pain management No involvement of bowel or bladder, no sacral anesthesia. She has intractable pain and weakness, will transfer her to get neurosurgery urgently. Patient got accepted at [facility] by Dr. Conde. Made the transfer arrangement. Waiting for a bed. Patient and the family is aware
== END 2024-05-23 18:13 | disposition short-term general hospital (02) | DRG 552 ==
LOC: SERX 21:44 → SERHOLD 22:34 → S3SX 05-21 08:07
PROVIDERS: Nurse Practitioner Family; Student in an Organized Health Care Education/Training Program; Admitting Provider Student in an Organized Health Care Education/Training Program; Emergency Provider Emergency Medicine; PCP Nurse Practitioner Family; Visit Provider Student in an Organized Health Care Education/Training Program
DX: M51.16 Intervertebral disc disorders with radiculopathy, lumbar region (principal); M48.07 Spinal stenosis, lumbosacral region; D64.9 Anemia, unspecified; I10 Essential (primary) hypertension; J45.909 Unspecified asthma, uncomplicated; K59.09 Other constipation; Z98.82 Breast implant status; Z79.899 Other long term (current) drug therapy; Z91.81 History of falling
CPT/HCPCS: 36415; 72132; 72148; 74177; 80048; 80053; 81001; 81025; 83690; 83735; 84100; 84439; 84443; 85025; 87086; 87811; 96372; 96374; 96375; 97161; 99285; A4649; G0378; J1100; J1885; J2270; J2405; J2470; J2550; J3490; J7040; J7120; Q9967; A9270

== ENCOUNTER → 2024-10-11 | Outpatient (CLI) | payer BC, MEDICAID, SELFPAY ==
--- NOTE | 2024-10-11 08:30 | XR_ITS ---
Examination: CT lumbar spine, without contrast. 2-D sagittal reconstructions. 2-D coronal reconstructions. 3-D reconstructions. Date and time of exam:October 11, 2024 0906 hours Comparison May 19, 2024 INDICATIONS: Low back pain years, lumbar spine surgery May 2024, worsening pain the last month CTDI: vol (mGy):25.8 DLP: (mGycm):716 Technique: Multiple 1.25 mm axial sections of the lumbar spine without intravenous contrast have been obtained. 2-D sagittal and coronal reconstructions have been obtained. 3-D reconstructions have been obtained. Low dose protocols were performed. One or more of the following dose reduction techniques were used; automated exposure control, adjustment of the mA and/or KV according to patient size, use of iterative reconstruction technique. Findings: Mild osteopenia Moderate narrowing L4-L5 No lumbar fracture Lumbar pedicles laminated transverse and posterior spinous processes intact L5-S1 no disc protrusion L4-L5 3 mm central lumbar disc protrusion axial image 94 L3-L4 no disc protrusion L2-L3 no disc protrusion L1-L2 no disc protrusion IMPRESSION: Moderate disc narrowing L4-L5 L4-L5 3 mm central lumbar disc protrusion
[2024-10-11 08:58] LABS: HCG Qualitative,Urine Negative
== END | disposition home or self-care (01) ==
LOC: CCTX 08:03
PROVIDERS: PCP Nurse Practitioner Family; Referring Provider Radiology Neuroradiology; Visit Provider Radiology Neuroradiology
DX: M51.26 Other intervertebral disc displacement, lumbar region (principal); M85.88 Other specified disorders of bone density and structure, other site
CPT/HCPCS: 72131; 81025

== ENCOUNTER → 2024-10-24 | Outpatient (CLI) | payer BC, MEDICAID, SELFPAY ==
--- NOTE | 2024-10-24 09:45 | XR_ITS ---
Examination: MRI lumbar spine without contrast Date and time of exam: October 24, 2024 1008 hours Comparison May 21, 2024 INDICATIONS: Low back pain 2 years radiating into the left buttock region post surgical repair May 24, 2024 returning pain over the last 2 months Technique: Multiple MRI axial and sagittal sections lumbar spine. Sagittal T2-weighted images, TR 3500, TE 118 T1 weighted transverse sections, TR 688 T8.5, T2-weighted sagittal sections T1 weighted sagittal sections TR 621, TE 30 T2 axial sections, TR 4, 190, TE 84. Findings: Adequate alignment lumbar vertebral bodies Moderate disc narrowing L4-L5 Disc desiccation L4-L5 L5-S1 no disc protrusion L4-L5 4 mm central lumbar disc bulge extending to the foraminal regions, no ganglionic compression L3-L4 no disc protrusion L2-L3 no disc protrusion L2 no disc protrusion IMPRESSION: L4-L5 4 mm central lumbar disc bulge extending to the foraminal regions, no ganglionic compression
== END | disposition home or self-care (01) ==
PROVIDERS: PCP Nurse Practitioner Family; Referring Provider Radiology Neuroradiology; Visit Provider Radiology Neuroradiology
DX: M51.369 Other intervertebral disc degeneration, lumbar region without mention of lumbar back pain or lower extremity pain (principal)
CPT/HCPCS: 72148